=== PATIENT | male | born 1975 | race Caucasian/White ===

== ENCOUNTER 2016-04-29 20:32 | Emergency (ER) | payer MEDICAID ==
[2016-04-29] MEDS ORDERED: Sodium Chloride 0.9% 1,000 ML IV SCH (22:15)
[2016-04-29] MEDS ORDERED: Insulin Lispro Protamine/Lispro 75-25 100 Units/ML 10 ML Vial SUBCUT SCH ×3 (22:20→23:30)
[2016-04-29] MEDS ORDERED: Potassium Chloride 10% 20 MEQ/15 ML Soln 15 ML UD Cup PO SCH ×2 (22:30)
[2016-04-29] MEDS ORDERED: Insuln Aspart Prot/Insulin Aspart 100 Units/ML 3 ML FlexPen SUBCUT SCH (22:30)
[2016-04-29] MEDS ORDERED: Insuln Aspart Prot/Insulin Aspart 100 Units/ML 3 ML FlexPen SUBCUT ONE (23:30)
[2016-04-30 04:44] VITALS: BP 138/72
[2016-04-30] MEDS ORDERED: Insulin Lispro Protamine/Lispro 75-25 100 Units/ML 10 ML Vial SUBCUT SCH (07:30)
--- NOTE | 2016-04-30 11:47 | CR ---
INDICATION: Shaky, slurred speech, secondary to high blood glucose. CHEST: PA and lateral views of the chest 04/29/2016 were compared with 2015 and 08/26/2015, revealing the heart to be slightly enlarged. The aorta is calcified in the arch area. No focal chamber enlargement was seen. A minimal dextroconcave scoliosis of the lower thoracic spine is again noted. A definite active infiltrate or effusion was not identified with heavy markings at the lung bases, especially on the right again noted. Somewhat nodular appearance is unchanged there. Additionally, a faint nodule in the left mid lung field is unchanged, compared with 08/24/2015. IMPRESSION: 1. Stable appearance of the chest. No definite acute process. 2. ASHD with cardiomegaly. 3. Mild scoliosis. 4. Nodularity in the lungs likely on the basis of post granulomatous change. 5. Prominent AP diameter, slightly flattened diaphragm leaves, raising question of COPD - correlate clinically. MTDD
--- NOTE | 2016-05-01 10:50 | ER ---
DATE SEEN: 04/29/2016 TIME SEEN: The patient was seen at 2038 hours. CHIEF COMPLAINT: "I feel funny and shaky." HISTORY OF PRESENT ILLNESS: This 41-year-old, who has known diabetes, has not taken care of his diabetes for several years, who now has appointment with a specialist in [place] at 1500 hours, 04/30/2016. The patient was seen at 2038 hours. He notes his speech is slurred. He has been "walking funny". He was diagnosed with diabetes 2 years ago. He has not taken his medicine for 2 years. He noted he had difficulty standing today and is more sleepy than usual and more tired than usual. He is going to school at [email or web address] and works at [employer] in [place], and he has a 17-hour day. MEDICATIONS: None. He has a history of asthma, and he uses albuterol p.r.n. at home as nebulization. ALLERGIES: Linezolid. The patient has not had his recent flu shot. Status post thoracotomy for a collapsed lung in 2011, left posterior lung incision. REVIEW OF SYSTEMS: Negative, except as noted above in HPI. The patient has no recent history of fever. PHYSICAL EXAMINATION: VITAL SIGNS: Blood pressure 135/78, heart rate 78, respirations 16, oxygen saturation 100%. Weight 90.718 kg, 1.75 meters height. BMI 29.5 kg/m2. GENERAL: Obese man, who has a markedly protuberant abdomen. He has slightly slurred speech. HEENT: PERRLA intact. Pupils are sluggish, but they are slightly dilated at 3 mm. Conjugate gaze noted. Pharynx: Moderate dryness of the pharynx. TMs negative. NECK: Supple. No bruits in neck. No thyromegaly. LUNGS: Clear to auscultation without rales, rhonchi, or wheezes. He has a posterior infrascapular thoracotomy scar, that is healed. Nontender. No absence of the ribs. ABDOMEN: Markedly protuberant. No masses palpable - I am unable to palpate anything because he has such a protuberant abdomen. EXTREMITIES: Without edema. NEURO: Hypoactive upper and lower extremities. Cranial nerves 2 through 12 intact. Oriented x3. Gait appropriate and slight slurred speech. No dysdiadochokinesis. No dysmetria. Hand arterial embalmer is good in upper and lower extremities. No motor or pronator drift. DIAGNOSTIC DATA: Chest x-ray without abnormality. EKG is normal. LABORATORY FINDINGS: Markedly elevated glucose, initially was 817. Sodium 125 (pseudohyponatremia secondary to hyperglycemia), potassium 3.9, chloride 93, CO2 of 24, BUN 20, creatinine 1.0, GFR greater than 60, BUN and creatinine ratio 20, hemoglobin A1c 12.8, total bilirubin 1.4, troponin less than 0.01. AST 24, ALT 21, alkaline phosphate 89, albumin normal at 3.8, protein normal at 6.5. Urinalysis shows rare bacteria, otherwise negative, 1.010 specific gravity. The latter was obtained after he had been flushed with 1000 mL of normal saline. The patient has hyperglycemia, was started on aspartate insulin 10 units subcu, and his subsequent glucose an hour later had gone down from 817 to 624. He was given a second dose of aspartate insulin and given 12 units of NovoLog, and his glucose then went down to 263. He never had ketonuria. DIAGNOSES: 1. Hyperosmotic hyperglycemia secondary to type 2 diabetes. 2. Massive obesity. 3. Confusion, slight slurred speech, and mild ataxia secondary to hyperglycemia. 4. Pseudohyponatremia secondary to hyperglycemia. 5. No evidence for myocardial ischemia. EKG is normal. 6. Dehydration. 7. Poor diabetic compliance. It has been 2 years since he has seen a doctor and treated his diabetes. 8. 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 The patient was flushed with a liter of fluid. He feels much better. His ataxia has relented. His alertness has improved. His speech is improved. No further insulin was given. He had 40 mEq of potassium chloride given because of potential low starting potassium of 3.9, and the presumption with insulin it would drop. /[id number] ASHLYN/JEFFERY RODRIGEZ
== END 2016-04-30 01:19 | disposition home or self-care (01) ==
LOC: FB.ED 20:32
DX: E11.00 Type 2 diabetes mellitus with hyperosmolarity without nonketotic hyperglycemic-hyperosmolar coma (NKHHC) (principal); J45.909 Unspecified asthma, uncomplicated; E66.9 Obesity, unspecified; E87.1 Hypo-osmolality and hyponatremia; E86.0 Dehydration; Z91.14 Patient's other noncompliance with medication regimen; Z88.8 Allergy status to other drugs, medicaments and biological substances
CPT/HCPCS: 36415; 71020; 80053; 81001; 82947; 83036; 84484; 93005; 96360; 96372; 99285; A9270; J7040

== ENCOUNTER 2016-05-22 21:06 | Observation (INO) | payer MEDICAID ==
[2016-05-22] MEDS ORDERED: Albuterol/Ipratropium 3.0-0.5 MG/3 ML Neb Soln NEB ONE (21:49)
--- NOTE | 2016-05-22 21:52 | EDM.PDOC ---
ED HISTORY OF PRESENT ILLNESS - General Chief Complaint: Respiratory Problem Stated Complaint: TROUBLE BREATHING Time Seen by Provider: 05/22/16 21:40 Source: Reports: Patient History Limitations: Reports: No limitations - History of Present Illness INITIAL COMMENTS - FREE TEXT/NARRATIVE: Helen comes in with a 1 week hx of productive cough of yellow tinged sputa, wheezing, and malaise. He was seen by PCP yesterday and prescribed a Z Jcarlos. He has been med compliant, although did not perform an Albuterol Neb this pm. Sxs seem worse. There is no chest pain, fever, chills or sweats. His spouse is also ill with a cold. Helen does not smoke. - Related Data Allergies/ADRs: Allergies Allergy/AdvReac Type Severity Reaction Status Date / Time linezolid [From Zyvox] Allergy Severe Rash Verified 05/22/16 22:32 Home Meds: Home Meds Albuterol [Proventil Neb Soln] 0.63 mg NEB Q6H 10/30/15 [History] metFORMIN HCl [Metformin HCl] 1,000 mg PO 05/22/16 [History] predniSONE 40 mg PO WITHBREAKFAST #8 tablet 05/22/16 [Rx] Past Medical History Respiratory History: Reports: Asthma, Bronchitis, recurrent, Pneumonia, recurrent, Pneumothorax Psychiatric History: Reports: Anxiety, Learning disability Endocrine/Metabolic History: Reports: Diabetes, type II - Infectious Disease History Infectious Disease History: Reports: MRSA - Past Surgical History Respiratory Surgical History: Reports: Other (see below) Other Respiratory Surgeries/Procedures: 2012 L lung collapsed Social & Family History - Family History Family Medical History: Unobtainable - Tobacco Use Smoking Status *Q: Never Smoker Second Hand Smoke Exposure: No - Caffeine Use Caffeine Use: Reports: Soda - Recreational Drug Use Recreational Drug Use: No ED ROS GENERAL - Review of Systems Review Of Systems: See Below Constitutional: Reports: malaise HEENT: Reports: No symptoms Respiratory: Reports: Shortness of Breath, Wheezing, Cough, Sputum Cardiovascular: Reports: No symptoms Endocrine: Reports: no symptoms GI/Abdominal: Reports: No symptoms : Reports: no symptoms Musculoskeletal: Reports: no symptoms Skin: Reports: no symptoms Neurological: Reports: No Symptoms Psychiatric: Reports: No symptoms Hematologic/Lymphatic: Reports: no symptoms Immunologic: Reports: no symptoms ED EXAM, GENERAL - Physical Exam Exam: See Below Exam Limited By: No limitations General Appearance: alert, WD/WN, mild distress Ears: normal external exam, normal canal Nose: normal inspection Throat/Mouth: Normal inspection, Normal lips, Normal gums, Normal oropharynx, Normal voice Head: atraumatic, normocephalic Neck: normal inspection, supple, non-tender, full range of motion Respiratory/Chest: chest non-tender, decreased breath sounds, rhonchi, wheezing , prolonged expiration Cardiovascular: normal peripheral pulses, regular rate, rhythm, no edema, no gallop, no JVD, no murmur, no rub GI/Abdominal: normal bowel sounds, soft, non tender, no organomegaly, no mass (Male) Exam: No hernia Back Exam: normal inspection Extremities: normal inspection, normal range of motion Neurological: alert, oriented, CN II-XII intact, normal cognition, normal gait, no motor/sensory deficits Psychiatric: other (mood neutral, affect mildly anxious) Skin Exam: Warm, Dry, Intact, Normal color, No rash Lymphatic: no adenopathy Course - Vital Signs Text/Narrative:: Following admission to the [facility] ED, I administered a DuoNeb and Prednisone 40 mg po. There was sx improvment with treatment. Last Recorded V/S: Last Vital Signs Temp 36.9 C 05/22/16 21:25 Pulse 110 H 05/22/16 21:25 Resp 20 05/22/16 21:25 BP 146/86 H 05/22/16 21:25 Pulse Ox 93 L 05/22/16 21:25 - Orders/Labs/Meds Orders: Active Orders 24 hr Category Date Time Status RT Aerosol Therapy [RC] ASDIRECTED Care 05/22/16 21:49 Active predniSONE Med 05/23/16 22:05 Once 40 mg PO ONETIME ONE Medication Orders Prednisone (Prednisone) 40 mg PO ONETIME ONE Stop: 05/23/16 22:06 Last Admin: 05/22/16 22:14 Dose: 40 mg Meds: Medications Generic Name Dose Route Start Last Admin Trade Name Freq PRN Reason Stop Dose Admin Prednisone 40 mg 05/23/16 22:05 05/22/16 22:14 Prednisone PO 05/23/16 22:06 40 mg ONETIME ONE Administration Discontinued Medications Generic Name Dose Route Start Last Admin Trade Name Freq PRN Reason Stop Dose Admin Albuterol/Ipratropium 3 ml 05/22/16 21:49 05/22/16 21:52 Duoneb 3.0-0.5 Mg/3 Ml NEB 05/22/16 21:50 3 ml ONETIME ONE Administration Prednisone 40 mg 05/23/16 08:00 Prednisone PO WITHBREAKFAST [facility] Prednisone Confirm 05/22/16 22:12 05/22/16 22:14 Prednisone Administered 05/22/16 22:13 Not Given Dose 40 mg .ROUTE .STK-MED ONE Departure - Departure Time of Disposition: 22:30 Disposition: Home, Self-Care 01 Condition: fair Clinical Impression: Bronchitis Asthma Qualifiers: Asthma severity: moderate persistent Asthma complication type: with acute exacerbation Qualified Code(s): J45.41 - Moderate persistent asthma with (acute ) exacerbation Forms: ED Department Discharge - Problem List & Annotations (1) Bronchitis SNOMED Code(s): 31553595 Code(s): J40 - BRONCHITIS, NOT SPECIFIED ACUTE OR CHRONIC Status: Acute Current Visit: Yes Annotation/Comment:: Finish out Z Jcarlos per PCP. (2) Asthma SNOMED Code(s): 629313538 Code(s): J45.909 - UNSPECIFIED ASTHMA, UNCOMPLICATED Status: Acute Current Visit: Yes Annotation/Comment:: Continue Prednisone 40 mg qd for another 4 days, and Albuterol Nebs q 2-4 hrs prn for sx relief. Follow up with PCP. Qualifiers: Asthma severity: moderate persistent Asthma complication type: with acute exacerbation Qualified Code(s): J45.41 - Moderate persistent asthma with ( acute) exacerbation - Problem List Review Problem List Initiated/Reviewed/Updated: Yes - My Orders Last 24 Hours: My Active Orders 05/22/16 21:49 RT Aerosol Therapy [RC] ASDIRECTED 05/23/16 22:05 predniSONE 40 mg PO ONETIME ONE - Assessment/Plan Last 24 Hours: My Active Orders 05/22/16 21:49 RT Aerosol Therapy [RC] ASDIRECTED 05/23/16 22:05 predniSONE 40 mg PO ONETIME ONE Plan: Finish out meds and follow up with PCP. Consider steroid MDI for mod persistent asthma.
[2016-05-22] MEDS ORDERED: predniSONE 20 MG Tab ONE (22:12)
[2016-05-23] MEDS ORDERED: Sodium Chloride 0.9% 10 ML Syringe FLUSH PRN (01:24)
[2016-05-23] MEDS ORDERED: Albuterol/Ipratropium 3.0-0.5 MG/3 ML Neb Soln INH PRN (01:24)
[2016-05-23] MEDS ORDERED: Insulin Regular, Human 100 Units/ML 3 ML Vial IV STA ×5 (01:48→06:26)
[2016-05-23] MEDS: Sodium Chloride 0.9% 1,000 ML IV SCH ×2 (02:00→05:37)
[2016-05-23] MEDS: ALBUTEROL 0.63 MG NEB SCH ×2 (02:19→14:26)
[2016-05-23] MEDS ORDERED: Flu Vaccine 2016-17(36Mos+)/PF 60 MCG/0.5 ML Syringe IM ONE (03:25)
[2016-05-23] MEDS ORDERED: predniSONE 20 MG Tab PO SCH ×2 (08:00)
[2016-05-23] MEDS ORDERED: Insulin Detemir 100 Units/ML 3 ML Pen SUBCUT SCH (09:00)
[2016-05-23] MEDS ORDERED: metFORMIN 500 MG Tab.ER PO SCH (09:00)
[2016-05-23] MEDS ORDERED: Azithromycin 250 MG Tab PO SCH (09:00)
[2016-05-23] MEDS ORDERED: glipiZIDE 10 MG Tab.ER PO SCH (09:00)
--- NOTE | 2016-05-23 09:07 | PCM.HP ---
H&P History of Present Illness - General Date of Service: 05/23/16 Admit Problem/Dx: Admission Diagnosis/Problem Admission Diagnosis/Problem Diabetes mellitus type 2 Source of Information: Patient - History of Present Illness Initial Comments - Free Text/Narative: This is a 41-year-old male patient does have three-week history of a cough productive sputum. He was seen in the ER and had a chest x-ray. He states 3 days ago he was seen in the clinic in on a Z-Jcarlos. He also was admitted because of blood sugar was over 600. He states he's been placed on insulin lately but he doesn't have time to take it. 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 He states he is has excessive thirst and urination. No excess hunger. He has a productive cough with green sputum. He denies shortness of breath. History of asthma. He spelled some chills but no fevers. He vomited one time a couple days of diarrhea. - Related Data Allergies/Adverse Reactions: Allergies Allergy/AdvReac Type Severity Reaction Status Date / Time linezolid [From Zyvox] Allergy Severe Rash Verified 05/23/16 00:12 Home Medications: Home Meds Albuterol [Proventil Neb Soln] 0.63 mg NEB Q6H 10/30/15 [History] metFORMIN HCl [Metformin HCl] 1,000 mg PO DAILY 05/22/16 [History] Azithromycin [Azithromycin] 250 mg PO DAILY 05/23/16 [History] Past Medical History Respiratory History: Reports: Asthma, Bronchitis, recurrent, Pneumonia, recurrent, Pneumothorax Neurological History: Reports: Seizure Other Neuro History: last one at age 2 Psychiatric History: Reports: Anxiety, Learning disability Endocrine/Metabolic History: Reports: Diabetes, type II Other Endocrine/Metabolic History: currently not taking his metformin because it makes him drowsy - Infectious Disease History Infectious Disease History: Reports: MRSA - Past Surgical History Respiratory Surgical History: Reports: Other (see below) Other Respiratory Surgeries/Procedures: 2012 L lung collapsed Social & Family History - Family History Family Medical History: Noncontributory - Tobacco Use Smoking Status *Q: Never Smoker Second Hand Smoke Exposure: No - Caffeine Use Caffeine Use: Reports: None - Recreational Drug Use Recreational Drug Use: No H&P Review of Systems - Review of Systems: Review Of Systems: See Below General: Reports: chills HEENT: Reports: no symptoms Pulmonary: Reports: Wheezing, Cough, Sputum. Denies: Shortness of Breath Cardiovascular: Reports: no symptoms Gastrointestinal: Reports: Vomiting. Denies: Black stool, Constipation, Diarrhea, Decreased appetite Genitourinary: Reports: no symptoms Musculoskeletal: Reports: no symptoms Skin: Reports: no symptoms Psychiatric: Reports: no symptoms Neurological: Reports: No Symptoms Hematologic/Lymphatic: Reports: no symptoms Immunologic: Reports: no symptoms Exam - Exam Exam: See Below - Vital Signs Vital Signs: Last Vital Signs Temp 97.7 F 05/23/16 07:56 Pulse 84 05/23/16 02:00 Resp 18 05/23/16 07:56 BP 129/74 05/23/16 07:56 Pulse Ox 97 05/23/16 07:56 Weight: 202 lb - Exam General: alert, oriented, cooperative HEENT: PERRLA, Hearing intact, Mucosa moist & pink, Posterior pharynx clear, Pupils equal, Pupils reactive, TMs clear Neck: supple, trachea midline Lungs: Decreased breath sounds (Left base), Wheezing Cardiovascular: regular rate, regular rhythm, normal S1, normal S2. No: systolic murmur, diastolic murmur Abdomen: normal bowel sounds, soft. No: organomegaly, guarding, rigidity, rebound, tenderness Back Exam: normal inspection, full range of motion, NT Extremities: normal inspection. No: edema Skin: warm, dry, intact Neuro Extensive - Mental Status: alert, oriented x3, normal mood/affect, normal cognition, memory intact Neuro Extensive - Motor, Sensory, Reflexes: normal gait Psychiatric: alert, normal affect, normal mood - Patient Data Lab Results last 24 hrs: Laboratory Results - last 24 hr 05/23/16 05/23/16 05/23/16 Range/Units 01:24 02:15 03:07 ABG pH 7.46 H (7.35-7.45) ABG pCO2 36 (35-45) mmHg ABG pO2 65 L (83-108) mmHg ABG HCO3 25 (22-26) mmol/L ABG O2 Saturation 94 L (96-97) % ABG Base Excess 2.5 H (-2-2) Daniele Test Performed O2 Delivery Device Room air Oxygen Flow Rate 0 L Sodium (135-145) mmol/L Potassium (3.5-5.3) mmol/L Chloride (100-110) mmol/L Carbon Dioxide (23-29) mmol/L BUN (5-20) mg/dL Creatinine (0.6-1.3) mg/dL Est Cr Clr Drug Dosing mL/min Estimated GFR (MDRD) (>60) BUN/Creatinine Ratio (9-20) Glucose (80-116) mg/dL POC Glucose 352 H (80-116) mg/dL Hemoglobin A1c 12.9 H (4.0-6.0) % Calcium (8.6-10.2) mg/dL 05/23/16 05/23/16 05/23/16 Range/Units 04:16 05:13 06:20 ABG pH (7.35-7.45) ABG pCO2 (35-45) mmHg ABG pO2 (83-108) mmHg ABG HCO3 (22-26) mmol/L ABG O2 Saturation (96-97) % ABG Base Excess (-2-2) Daniele Test O2 Delivery Device Oxygen Flow Rate L Sodium 135 (135-145) mmol/L Potassium 3.7 (3.5-5.3) mmol/L Chloride 98 L D (100-110) mmol/L Carbon Dioxide 26 (23-29) mmol/L BUN 17 (5-20) mg/dL Creatinine 0.9 (0.6-1.3) mg/dL Est Cr Clr Drug Dosing 108.01 mL/min Estimated GFR (MDRD) > 60 (>60) BUN/Creatinine Ratio 18.9 (9-20) Glucose 265 H D (80-116) mg/dL POC Glucose 355 H 347 H (80-116) mg/dL Hemoglobin A1c (4.0-6.0) % Calcium 8.7 (8.6-10.2) mg/dL 05/23/16 05/23/16 Range/Units 06:24 07:51 ABG pH (7.35-7.45) ABG pCO2 (35-45) mmHg ABG pO2 (83-108) mmHg ABG HCO3 (22-26) mmol/L ABG O2 Saturation (96-97) % ABG Base Excess (-2-2) Daniele Test O2 Delivery Device Oxygen Flow Rate L Sodium (135-145) mmol/L Potassium (3.5-5.3) mmol/L Chloride (100-110) mmol/L Carbon Dioxide (23-29) mmol/L BUN (5-20) mg/dL Creatinine (0.6-1.3) mg/dL Est Cr Clr Drug Dosing mL/min Estimated GFR (MDRD) (>60) BUN/Creatinine Ratio (9-20) Glucose (80-116) mg/dL POC Glucose 230 H D 188 H (80-116) mg/dL Hemoglobin A1c (4.0-6.0) % Calcium (8.6-10.2) mg/dL Result Diagrams: 05/23/16 06:20 *Q Meaningful Use (ADM) - VTE *Q VTE Criteria *Q: - Stroke *Q Stroke Criteria *Q: - AMI *Q AMI Criteria *Q: - Problem List (1) Bronchitis SNOMED Code(s): 53484937 ICD Code: J40 - BRONCHITIS, NOT SPECIFIED ACUTE OR CHRONIC Status: Acute Current Visit: Yes Problem Details: Finish out Z Jcarlos per PCP. (2) Diabetes mellitus type 2, uncontrolled SNOMED Code(s): 76582408, 228362921 ICD Code: E11.65 - TYPE 2 DIABETES MELLITUS WITH HYPERGLYCEMIA Status: Acute Current Visit: Yes (3) Asthma SNOMED Code(s): 821119450 ICD Code: J45.909 - UNSPECIFIED ASTHMA, UNCOMPLICATED Status: Acute Current Visit: Yes Problem Details: Continue Prednisone 40 mg qd for another 4 days, and Albuterol Nebs q 2-4 hrs prn for sx relief. Follow up with PCP. Qualifiers: Asthma severity: moderate persistent Asthma complication type: with acute exacerbation Qualified Code(s): J45.41 - Moderate persistent asthma with ( acute) exacerbation (4) Hyponatremia SNOMED Code(s): 42559094 ICD Code: E87.1 - HYPO-OSMOLALITY AND HYPONATREMIA Status: Acute Current Visit: Yes Problem List Initiated/Reviewed/Updated: Yes Orders Last 24hrs: Active Orders 24 hr Category Date Time Status Patient Status [ADT] Routine ADT 05/23/16 01:24 Active Cardiac Monitoring [RC] CONTINUOUS Care 05/23/16 01:26 Active Oxygen Therapy [RC] PRN Care 05/23/16 01:24 Active Up ad Miladis [RC] ASDIRECTED Care 05/23/16 01:24 Active Vital Signs [RC] Q4H Care 05/23/16 01:24 Active Consistent Carbohydrate Diet [DIET] Diet 05/23/16 Breakfast Active Chest 2V [CR] Routine Exams 05/23/16 09:00 Ordered Albuterol/Ipratropium [DuoNeb 3.0-0.5 MG/3 ML] Med 05/23/16 01:24 Active 3 ml INH Q4H PRN Azithromycin [Zithromax] Med 05/23/16 09:00 Active 250 mg PO DAILY Insulin Detemir [Levemir] Med 05/23/16 09:00 Ordered 10 unit SUBCUT DAILY Insulin Regular, Human [HumuLIN R] 100 unit Med 05/23/16 01:45 Active Sodium Chloride 0.9% [Normal Saline] 99 ml SUBCUT TITRATE Sodium Chloride 0.9% [Normal Saline] 1,000 ml Med 05/23/16 01:45 Active IV ASDIRECTED Sodium Chloride 0.9% [Saline Flush] Med 05/23/16 01:24 Active 10 ml FLUSH ASDIRECTED PRN glipiZIDE [Glucotrol] Med 05/23/16 09:00 Ordered 10 mg PO DAILY metFORMIN [Glucophage XR] Med 05/23/16 18:00 Ordered 500 mg PO BIDMEALS predniSONE Med 05/23/16 08:00 Active 40 mg PO WITHBREAKFAST Saline Lock Insert [OM.PC] Routine Oth 05/23/16 01:24 Ordered Resuscitation Status Routine Resus Stat 05/23/16 01:24 Ordered Medication Orders Albuterol/Ipratropium (Duoneb 3.0-0.5 Mg/3 Ml) 3 ml INH Q4H PRN PRN Reason: Shortness Of Breath/wheezing Last Admin: 05/23/16 02:18 Dose: 3 ml Azithromycin (Zithromax) 250 mg PO DAILY JOSE Glipizide (Glucotrol) 10 mg PO DAILY JOSE Insulin Human Regular 100 unit (/ Sodium Chloride) 100 mls @ 0.5 mls/hr SUBCUT TITRATE JOSE; 0.5 UNITS/HR PRN Reason: Protocol Last Titration: 05/23/16 07:55 Dose: 8 units/hr, 8 mls/hr Titration: 05/23/16 06:23 Dose: 7.5 units/hr, 7.5 mls/hr Titration: 05/23/16 05:14 Dose: 6.5 units/hr, 6.5 mls/hr Titration: 05/23/16 04:17 Dose: 4.5 units/hr, 4.5 mls/hr Titration: 05/23/16 03:00 Dose: 2.5 units/hr, 2.5 mls/hr Admin: 05/23/16 02:00 Dose: 0.5 units/hr, 0.5 mls/hr Sodium Chloride (Normal Saline) 1,000 mls @ 250 mls/hr IV ASDIRECTED COUNTS INCLUDE 234 BEDS AT THE [facility] Last Admin: 05/23/16 05:37 Dose: 250 mls/hr Infusion: 05/23/16 05:37 Dose: 250 mls/hr Admin: 05/23/16 02:00 Dose: 250 mls/hr Insulin Detemir (Levemir) 10 unit SUBCUT DAILY COUNTS INCLUDE 234 BEDS AT THE [facility] Metformin HCl (Glucophage Xr) 500 mg PO BIDMEALS COUNTS INCLUDE 234 BEDS AT THE [facility] Non-Formulary Medication (Albuterol [Proventil Neb Soln]) 0.63 mg NEB Q6H COUNTS INCLUDE 234 BEDS AT THE [facility] Last Admin: 05/23/16 02:19 Dose: Prednisone (Prednisone) 40 mg PO WITHBREAKFAST COUNTS INCLUDE 234 BEDS AT THE [facility] Sodium Chloride (Saline Flush) 10 ml FLUSH ASDIRECTED PRN PRN Reason: Keep Vein Open Last Admin: 05/23/16 02:13 Dose: 10 ml Assessment/Plan Comment:: 1. Admitted for blood sugar control. 2. I looked up what medicines he is on in the clinic is not taking. He'll restart the study. 2. Diabetic diet. 4. Chest x-ray to rule out pneumonia. 5. Up ad miladis. 6. Albuterol nebs when necessary. 7. Continue Zithromax.
[2016-05-23] MEDS ORDERED: Albuterol 0.083% 2.5 MG/3 ML Neb Soln INH SCH (11:00)
--- NOTE | 2016-05-23 11:19 | CR ---
INDICATION: Cough. CHEST: PA and lateral views of the chest 05/23/2016 were compared with 2016 and 02/16/2016, revealing suggestion of patchy infiltration in the right mid lung field, right lung base and lower lung field also on the left, as well as possibly at the left lung base. Findings may represent areas of patchy bronchopneumonia. No gross consolidating pneumonia or effusion was seen. Diaphragm leaves are again noted to be somewhat flattened with prominent AP diameter, raising question of obstructive airway disease - possible COPD - correlate clinically. The heart appeared somewhat prominent in size, but not grossly enlarged. There may be some minimal calcification in the arch of the aorta. Overlying EKG leads are noted. Mild dextroconcave scoliosis of the lower thoracic spine is noted. IMPRESSION: 1. Findings suggest the possibility of patchy bronchopneumonia bilaterally. This could be on the basis of aspiration, but should be correlated clinically. 2. ASD aorta, minimal. 3. Minimal scoliosis. 4. Possible COPD. MTDD
[2016-05-23 12:10] VITALS: BP 137/69
--- NOTE | 2016-05-23 12:15 | PCM.DCSUM1 ---
Discharge Summary - Hospital Course Free Text/Narrative:: Hospital course-patient was admitted for IV insulin and steroids. I saw him in the morning and taken off his insulin and place him back on Glucophage and Glucotrol 10 mg XL once a day. I stopped his steroids. He got a chest x-ray that showed bibasilar pneumonia. He was already on Zithromax and which is helping so I added doxycycline 100 mg twice a day. Discharge to home follow up with Aysha Banegas. Brief History: This is a 41-year-old male patient does have three-week history of a cough productive sputum. He was seen in the ER and had a chest x-ray. He states 3 days ago he was seen in the clinic in on a [facility]. He also was admitted because of blood sugar was over 600. He states he's been placed on insulin lately but he doesn't have time to take it. 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 He states he is has excessive thirst and urination. No excess hunger. He has a productive cough with green sputum. He denies shortness of breath. History of asthma. He spelled some chills but no fevers. He vomited one time a couple days of diarrhea. - Discharge Data Discharge Date: 05/23/16 Discharge Disposition: Home, Self-Care 01 Condition: Good - Discharge Diagnosis/Problem(s) (1) Diabetes mellitus type 2, uncontrolled SNOMED Code(s): 41874369, 713484929 ICD Code: E11.65 - TYPE 2 DIABETES MELLITUS WITH HYPERGLYCEMIA Status: Acute Current Visit: Yes (2) Asthma SNOMED Code(s): 195841171 ICD Code: J45.909 - UNSPECIFIED ASTHMA, UNCOMPLICATED Status: Acute Current Visit: Yes Problem Details: Continue Prednisone 40 mg qd for another 4 days, and Albuterol Nebs q 2-4 hrs prn for sx relief. Follow up with PCP. Qualifiers: Asthma severity: moderate persistent Asthma complication type: with acute exacerbation Qualified Code(s): J45.41 - Moderate persistent asthma with ( acute) exacerbation (3) Hyponatremia SNOMED Code(s): 59570380 ICD Code: E87.1 - HYPO-OSMOLALITY AND HYPONATREMIA Status: Acute Current Visit: Yes (4) Pneumonia SNOMED Code(s): 375777473 ICD Code: J18.9 - PNEUMONIA, UNSPECIFIED ORGANISM Status: Acute Current Visit: Yes Qualifiers: Pneumonia type: due to unspecified organism Laterality: bilateral - Patient Instructions Diet: Diabetic Diet Activity: As Tolerated Driving: May Drive Today Showering/Bathing: May Shower Other/Special Instructions: 1. Recheck with Aysha Banegas in 3-5 days - Discharge Plan Prescriptions/Med Rec: Doxycycline [Vibra-Tabs] 100 mg PO Q12HR #20 tab glipiZIDE [Glucotrol XL] 10 mg PO DAILY #30 tab.er Home Medications: Home Meds Albuterol [Proventil Neb Soln] 0.63 mg NEB Q6H 10/30/15 [History] metFORMIN HCl [Metformin HCl] 1,000 mg PO DAILY 05/22/16 [History] Azithromycin 250 mg PO DAILY 05/23/16 [History] Doxycycline [Vibra-Tabs] 100 mg PO Q12HR #20 tab 05/23/16 [Rx] glipiZIDE [Glucotrol XL] 10 mg PO DAILY #30 tab.er 05/23/16 [Rx] Forms: ED Department Discharge Referrals: PCP,Unknown [Primary Care Provider] - - Discharge Summary/Plan Comment DC Time >30 min.: No - Patient Data Vitals - Most Recent: Last Vital Signs Temp 97.2 F 05/23/16 12:00 Pulse 90 05/23/16 12:00 Resp 18 05/23/16 12:00 BP 137/69 05/23/16 12:00 Pulse Ox 96 05/23/16 12:00 Weight - Most Recent: 202 lb I&O - Last 24 hours: Intake & Output 05/22/16 05/23/16 05/23/16 22:59 06:59 14:59 Intake Total 1816 125 Output Total 1400 725 Balance 416 -600 Lab Results - Last 24 hrs: Laboratory Results - last 24 hr 05/23/16 05/23/16 05/23/16 Range/Units 01:24 02:15 03:07 ABG pH 7.46 H (7.35-7.45) ABG pCO2 36 (35-45) mmHg ABG pO2 65 L (83-108) mmHg ABG HCO3 25 (22-26) mmol/L ABG O2 Saturation 94 L (96-97) % ABG Base Excess 2.5 H (-2-2) Daniele Test Performed O2 Delivery Device Room air Oxygen Flow Rate 0 L Sodium (135-145) mmol/L Potassium (3.5-5.3) mmol/L Chloride (100-110) mmol/L Carbon Dioxide (23-29) mmol/L BUN (5-20) mg/dL Creatinine (0.6-1.3) mg/dL Est Cr Clr Drug Dosing mL/min Estimated GFR (MDRD) (>60) BUN/Creatinine Ratio (9-20) Glucose (80-116) mg/dL POC Glucose 352 H (80-116) mg/dL Hemoglobin A1c 12.9 H (4.0-6.0) % Calcium (8.6-10.2) mg/dL 05/23/16 05/23/16 05/23/16 Range/Units 04:16 05:13 06:20 ABG pH (7.35-7.45) ABG pCO2 (35-45) mmHg ABG pO2 (83-108) mmHg ABG HCO3 (22-26) mmol/L ABG O2 Saturation (96-97) % ABG Base Excess (-2-2) Daniele Test O2 Delivery Device Oxygen Flow Rate L Sodium 135 (135-145) mmol/L Potassium 3.7 (3.5-5.3) mmol/L Chloride 98 L D (100-110) mmol/L Carbon Dioxide 26 (23-29) mmol/L BUN 17 (5-20) mg/dL Creatinine 0.9 (0.6-1.3) mg/dL Est Cr Clr Drug Dosing 108.01 mL/min Estimated GFR (MDRD) > 60 (>60) BUN/Creatinine Ratio 18.9 (9-20) Glucose 265 H D (80-116) mg/dL POC Glucose 355 H 347 H (80-116) mg/dL Hemoglobin A1c (4.0-6.0) % Calcium 8.7 (8.6-10.2) mg/dL 05/23/16 05/23/16 05/23/16 Range/Units 06:24 07:51 09:02 ABG pH (7.35-7.45) ABG pCO2 (35-45) mmHg ABG pO2 (83-108) mmHg ABG HCO3 (22-26) mmol/L ABG O2 Saturation (96-97) % ABG Base Excess (-2-2) Daniele Test O2 Delivery Device Oxygen Flow Rate L Sodium (135-145) mmol/L Potassium (3.5-5.3) mmol/L Chloride (100-110) mmol/L Carbon Dioxide (23-29) mmol/L BUN (5-20) mg/dL Creatinine (0.6-1.3) mg/dL Est Cr Clr Drug Dosing mL/min Estimated GFR (MDRD) (>60) BUN/Creatinine Ratio (9-20) Glucose (80-116) mg/dL POC Glucose 230 H D 188 H 148 H (80-116) mg/dL Hemoglobin A1c (4.0-6.0) % Calcium (8.6-10.2) mg/dL Med Orders - Current: Current Medications Albuterol (Proventil Neb Soln) 2.5 mg INH QIDRT [facility] Last Admin: 05/23/16 10:23 Dose: 2.5 mg Albuterol/Ipratropium (Duoneb 3.0-0.5 Mg/3 Ml) 3 ml INH Q4H PRN PRN Reason: Shortness Of Breath/wheezing Last Admin: 05/23/16 02:18 Dose: 3 ml Azithromycin (Zithromax) 250 mg PO DAILY [facility] Last Admin: 05/23/16 09:06 Dose: 250 mg Glipizide (Glucotrol Xl) 10 mg PO DAILY [facility] Last Admin: 05/23/16 10:42 Dose: 10 mg Sodium Chloride (Normal Saline) 1,000 mls @ 250 mls/hr IV ASDIRECTED [facility] Last Admin: 05/23/16 05:37 Dose: 250 mls/hr Insulin Detemir (Levemir) 10 unit SUBCUT DAILY [facility] Last Admin: 05/23/16 09:22 Dose: 10 units Metformin HCl (Glucophage Xr) 500 mg PO BIDMEALS [facility] Last Admin: 05/23/16 10:26 Dose: 500 mg Prednisone (Prednisone) 40 mg PO WITHBREAKFAST [facility] Last Admin: 05/23/16 09:05 Dose: 40 mg Sodium Chloride (Saline Flush) 10 ml FLUSH ASDIRECTED PRN PRN Reason: Keep Vein Open Last Admin: 05/23/16 02:13 Dose: 10 ml Discontinued Medications Albuterol/Ipratropium (Duoneb 3.0-0.5 Mg/3 Ml) 3 ml NEB ONETIME ONE Stop: 05/22/16 21:50 Last Admin: 05/22/16 21:52 Dose: 3 ml Insulin Human Regular 100 unit (/ Sodium Chloride) 100 mls @ 0.5 mls/hr SUBCUT TITRATE JOSE; 0.5 UNITS/HR PRN Reason: Protocol Last Titration: 05/23/16 09:12 Dose: 0 units/hr, 0 mls/hr Influenza Virus Vaccine (Fluzone/Fluarix Vaccine) 60 mcg IM .ONCE ONE Stop: 05/23/16 03:26 Insulin Human Regular (Humulin R) 5 unit IV NOW STA PRN Reason: Protocol Stop: 05/23/16 01:49 Last Admin: 05/23/16 02:00 Dose: 5 units Insulin Human Regular (Humulin R) 3 unit IV NOW STA PRN Reason: Protocol Stop: 05/23/16 03:11 Last Admin: 05/23/16 03:43 Dose: 3 units Insulin Human Regular (Humulin R) 0 unit IV NOW STA PRN Reason: Protocol Stop: 05/23/16 04:21 Last Admin: 05/23/16 04:40 Dose: 3 units Insulin Human Regular (Humulin R) 0 unit IV NOW STA PRN Reason: Protocol Stop: 05/23/16 05:17 Last Admin: 05/23/16 05:34 Dose: 3 units Insulin Human Regular (Humulin R) 1 unit IV NOW STA PRN Reason: Protocol Stop: 05/23/16 06:27 Last Admin: 05/23/16 07:14 Dose: 1 units Non-Formulary Medication (Albuterol [Proventil Neb Soln]) 0.63 mg NEB Q6H [facility] Last Admin: 05/23/16 02:19 Dose: Not Given Prednisone (Prednisone) 40 mg PO WITHBREAKFAST JOSE Prednisone (Prednisone) 40 mg PO ONETIME ONE Stop: 05/23/16 22:06 Last Admin: 05/22/16 22:14 Dose: 40 mg Prednisone (Prednisone) Confirm Administered Dose 40 mg .ROUTE .STK-MED ONE Stop: 05/22/16 22:13 Last Admin: 05/22/16 22:14 Dose: Not Given *Q Meaningful Use (DIS) - VTE *Q VTE Criteria *Q: - Stroke *Q Stroke Criteria *Q: - AMI *Q AMI Criteria *Q:
[2016-05-23] MEDS ORDERED: predniSONE 20 MG Tab PO ONE (22:05)
== END 2016-05-23 14:25 | disposition home or self-care (01) ==
LOC: FB.ED 21:06 → FB.ICU 23:51
PROVIDERS: ADMIT Family Medicine; ATTEND Family Medicine
DX: E11.65 Type 2 diabetes mellitus with hyperglycemia (principal); Z79.84 Long term (current) use of oral hypoglycemic drugs; E87.1 Hypo-osmolality and hyponatremia; J45.901 Unspecified asthma with (acute) exacerbation; J18.9 Pneumonia, unspecified organism; Z87.01 Personal history of pneumonia (recurrent); F81.9 Developmental disorder of scholastic skills, unspecified; F41.9 Anxiety disorder, unspecified; Z88.8 Allergy status to other drugs, medicaments and biological substances
CPT/HCPCS: 36415; 36600; 71020; 80048; 81001; 82803; 82962; 83036; 94640; 96360; 96361; 99283; A9270; G0008; G0378; J1815; J7030; J7040; J7050; J7620; 90686

== ENCOUNTER 2016-08-08 00:10 | Emergency (ER) | payer MEDICAID ==
[2016-08-08] MEDS ORDERED: Ondansetron 4 MG Tab.DIS PO ONE ×2 (00:54→01:57)
[2016-08-08] MEDS ORDERED: Lactated Ringers 1,000 ML IV ONE (01:02)
[2016-08-08] MEDS ORDERED: Atropine/Diphenoxylate 0.025-2.5 MG Tab PO ONE (01:03)
--- NOTE | 2016-08-08 01:37 | EDM.PDOC ---
ED HPI GENERAL MEDICAL PROBLEM - General Chief Complaint: Abdominal Pain Stated Complaint: THROWING UP Time Seen by Provider: 08/08/16 01:00 Source of Information: Reports: Patient, Family, Old Records History Limitations: Reports: No Limitations - History of Present Illness INITIAL COMMENTS - FREE TEXT/NARRATIVE: 41 yo male with vomiting and diarrhea that began in the evening of 08/07/16. No blood in stools or emesis. had similar sx's earlier. No fever. 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: Reports: Other (see below) (none) Mid abdomen Pain Score (Numeric/FACES): 6 - Related Data Allergies Allergy/AdvReac Type Severity Reaction Status Date / Time linezolid [From Zyvox] Allergy Severe Rash Verified 05/23/16 00:12 Home Meds: Home Meds Albuterol [Proventil Neb Soln] 0.63 mg NEB Q6H 10/30/15 [History] Azithromycin 250 mg PO DAILY 05/23/16 [History] Doxycycline [Vibra-Tabs] 100 mg PO Q12HR #20 tab 05/23/16 [Rx] glipiZIDE [Glucotrol XL] 10 mg PO DAILY #30 tab.er 05/23/16 [Rx] metFORMIN [Glucophage XR] 500 mg PO BIDMEALS #60 tab.er 05/23/16 [Rx] Past Medical History Respiratory History: Reports: Asthma, Bronchitis, Recurrent, Pneumonia, Recurrent, Pneumothorax Musculoskeletal History: Reports: Arthritis, Other (See Below) Other Musculoskeletal History: arthritis L foot Neurological History: Reports: Seizure Other Neuro History: last one at age 2 Psychiatric History: Reports: Anxiety, Learning Disability Endocrine/Metabolic History: Reports: Diabetes, Type II Other Endocrine/Metabolic History: currently not taking his metformin because it makes him drowsy - Infectious Disease History Infectious Disease History: Reports: Chicken Pox, MRSA, Other (See Below) Other Infectious Disease History: MRSA from lung infection - Past Surgical History Respiratory Surgical History: Reports: Other (See Below) Other Respiratory Surgeries/Procedures: chest tube for collapsed lung 2012 after pneumonia. Social & Family History - Family History Family Medical History: Noncontributory - Tobacco Use Smoking Status *Q: Never Smoker Second Hand Smoke Exposure: No - Caffeine Use Caffeine Use: Reports: Soda - Recreational Drug Use Recreational Drug Use: No ED ROS GENERAL - Review of Systems Review Of Systems: See Below Constitutional: Reports: Decreased Appetite HEENT: Reports: No Symptoms Respiratory: Reports: No Symptoms Cardiovascular: Reports: No Symptoms GI/Abdominal: Reports: Anorexia, Diarrhea, Decreased Appetite, Nausea, Vomiting. Denies: Black Stool, Bloody Stool, Constipation, Distension, Flatus, Hematemesis, Hematochezia, Melena, Stool Incontinence : Reports: No Symptoms Musculoskeletal: Reports: No Symptoms Skin: Reports: No Symptoms Neurological: Reports: No Symptoms Psychiatric: Reports: No Symptoms ED EXAM, GI/ABD - Physical Exam Exam: See Below Exam Limited By: No Limitations General Appearance: Alert, WD/WN, No Apparent Distress Eyes: Bilateral: Normal Appearance, EOMI Ears: Normal External Exam, Normal Canal, Hearing Grossly Normal, Other (R TM normal. L TM obscured by cerumen.) Nose: Normal Inspection, Normal Mucosa, No Blood Throat/Mouth: Normal Inspection, Normal Lips, Normal Oropharynx, Normal Voice, No Airway Compromise Head: Atraumatic, Normocephalic Neck: Normal Inspection, Supple, Non-Tender, Full Range of Motion Respiratory/Chest: No Respiratory Distress, Lungs Clear, Normal Breath Sounds, No Accessory Muscle Use Cardiovascular: Regular Rate, Rhythm, No Edema GI/Abdominal: Normal Bowel Sounds, Soft, Non-Tender, No Distention Back Exam: Normal Inspection Extremities: Normal Inspection, Normal Range of Motion, Non-Tender, No Pedal Edema Neurological: Alert, Oriented, CN II-XII Intact, No Motor/Sensory Deficits, Other (mentally a little slow.) Psychiatric: Normal Affect, Normal Mood Skin Exam: Warm, Dry, Intact, Normal Color, No Rash Lymphatic: No Adenopathy Course - Vital Signs Text/Narrative:: Orthostats + LR 1000 ml IV, Zofran ODT 4 mg SL, Lomotil 2 po, KCL 40 meq po Last Recorded V/S: Last Vital Signs Temp 36.7 C 08/08/16 00:12 Pulse 88 08/08/16 00:12 Resp 18 08/08/16 00:12 BP 164/92 H 08/08/16 00:12 Pulse Ox 98 08/08/16 00:12 Orthostatic Blood Pressure [ 144/99 Standing] Orthostatic Blood Pressure [ 131/84 Sitting] Orthostatic Blood Pressure [ 129/84 Supine] - Orders/Labs/Meds Orders: Active Orders 24 hr Category Date Time Status Orthostatic Vital Signs [RC] ASDIRECTED Care 08/08/16 01:01 Active Lactated Ringers [Ringers, Lactated] 1,000 ml Med 08/08/16 01:02 Active IV BOLUS Potassium Chloride [Klor-Con 10] Med 08/08/16 01:47 Once 40 meq PO ONETIME ONE Medication Orders Lactated Ringer's (Ringers, Lactated) 1,000 mls @ 1,000 mls/hr IV BOLUS ONE Stop: 08/08/16 02:01 Labs: Laboratory Tests 08/08/16 Range/Units 01:23 Sodium 132 L (135-145) mmol/L Potassium 3.4 L (3.5-5.3) mmol/L Chloride 97 L (100-110) mmol/L Carbon Dioxide 26 (23-29) mmol/L BUN 14 (5-20) mg/dL Creatinine 0.8 (0.6-1.3) mg/dL Est Cr Clr Drug Dosing TNP Estimated GFR (MDRD) > 60 (>60) BUN/Creatinine Ratio 17.5 (9-20) Glucose 318 H (80-116) mg/dL Calcium 8.9 (8.6-10.2) mg/dL Meds: Medications Generic Name Dose Route Start Last Admin Trade Name Freq PRN Reason Stop Dose Admin Lactated Ringer's 1,000 mls @ 1,000 mls/hr 08/08/16 01:02 Ringers, Lactated IV 08/08/16 02:01 BOLUS ONE Discontinued Medications Generic Name Dose Route Start Last Admin Trade Name Freq PRN Reason Stop Dose Admin Diphenoxylate HCl/Atropine 2 tab 08/08/16 01:03 Lomotil 0.025-2.5 Mg PO 08/08/16 01:04 ONETIME ONE Ondansetron HCl 4 mg 08/08/16 00:54 08/08/16 00:59 Zofran Odt PO 08/08/16 00:55 4 mg ONETIME ONE Administration Departure - Departure Time of Disposition: 02:20 Disposition: Home, Self-Care 01 Condition: Fair Clinical Impression: Orthostatic hypotension, Viral gastroenteritis, Hypokalemia Hyperglycemia due to type 2 diabetes mellitus Qualifiers: Diabetes mellitus mcc insulin use: without mcc use Qualified Code(s ): E11.65 - Type 2 diabetes mellitus with hyperglycemia - Discharge Information Forms: ED Department Discharge - My Orders Last 24 Hours: My Active Orders 08/08/16 01:01 Orthostatic Vital Signs [RC] ASDIRECTED 08/08/16 01:02 Lactated Ringers [Ringers, Lactated] 1,000 ml IV BOLUS 08/08/16 01:47 Potassium Chloride [Klor-Con 10] 40 meq PO ONETIME ONE - Assessment/Plan Last 24 Hours: My Active Orders 08/08/16 01:01 Orthostatic Vital Signs [RC] ASDIRECTED 08/08/16 01:02 Lactated Ringers [Ringers, Lactated] 1,000 ml IV BOLUS 08/08/16 01:47 Potassium Chloride [Klor-Con 10] 40 meq PO ONETIME ONE
[2016-08-08] MEDS ORDERED: Potassium Chloride 10 MEQ Tab.ER PO ONE (01:47)
[2016-08-08 02:24] VITALS: BP 147/99
== END 2016-08-08 02:32 | disposition home or self-care (01) ==
LOC: FB.ED 00:10
DX: A08.4 Viral intestinal infection, unspecified (principal); I95.1 Orthostatic hypotension; E11.65 Type 2 diabetes mellitus with hyperglycemia; E87.6 Hypokalemia; Z79.82 Long term (current) use of aspirin; Z79.899 Other long term (current) drug therapy; Z88.8 Allergy status to other drugs, medicaments and biological substances
CPT/HCPCS: 36415; 80048; 96360; 99284; A9270; J7120

== ENCOUNTER 2016-09-24 22:51 | Emergency (ER) | payer MEDICAID ==
[2016-09-24] MEDS ORDERED: Ondansetron 4 MG Tab.DIS PO ONE (23:20)
--- NOTE | 2016-09-24 23:47 | EDM.PDOC ---
ED HPI GENERAL MEDICAL PROBLEM - General Chief Complaint: Gastrointestinal Problem Stated Complaint: THROWING UP Time Seen by Provider: 09/24/16 23:35 Source of Information: Reports: Patient History Limitations: Reports: No Limitations - History of Present Illness INITIAL COMMENTS - FREE TEXT/NARRATIVE: 41 yo male presents after one emesis last night and one more tonight. No fever or diarrhea. Is currently not nauseated. No postural dizziness. His has both vomiting and diarrhea currently. 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: Other (see below) (none) - Related Data Allergies Allergy/AdvReac Type Severity Reaction Status Date / Time linezolid [From Zyvox] Allergy Severe Rash Verified 09/24/16 23:02 Home Meds: Home Meds Albuterol [Proventil Neb Soln] 0.63 mg NEB Q6H PRN 10/30/15 [History] Past Medical History Respiratory History: Reports: Asthma, Bronchitis, Recurrent, Pneumonia, Recurrent, Pneumothorax Other Respiratory History: collapsed lung Musculoskeletal History: Reports: Arthritis, Other (See Below) Other Musculoskeletal History: arthritis L foot Neurological History: Reports: Seizure Other Neuro History: last one at age 2 Psychiatric History: Reports: Anxiety, Learning Disability Endocrine/Metabolic History: Reports: Diabetes, Type II Other Endocrine/Metabolic History: currently not taking his metformin because it makes him drowsy - Infectious Disease History Infectious Disease History: Reports: Chicken Pox, MRSA, Other (See Below) Other Infectious Disease History: MRSA from lung infection - Past Surgical History Respiratory Surgical History: Reports: Other (See Below) Other Respiratory Surgeries/Procedures: chest tube for collapsed lung 2012 after pneumonia. Social & Family History - Family History Family Medical History: Noncontributory - Tobacco Use Smoking Status *Q: Never Smoker Second Hand Smoke Exposure: No - Caffeine Use Caffeine Use: Reports: Soda - Recreational Drug Use Recreational Drug Use: No ED ROS GENERAL - Review of Systems Review Of Systems: See Below Constitutional: Reports: No Symptoms HEENT: Reports: No Symptoms Respiratory: Reports: No Symptoms Cardiovascular: Reports: No Symptoms GI/Abdominal: Reports: Nausea, Vomiting Musculoskeletal: Reports: No Symptoms Skin: Reports: No Symptoms Neurological: Reports: No Symptoms ED EXAM, GI/ABD - Physical Exam Exam: See Below Exam Limited By: No Limitations General Appearance: Alert, WD/WN, No Apparent Distress Eyes: Bilateral: Normal Appearance Ears: Normal External Exam, Normal Canal, Hearing Grossly Normal Nose: Normal Inspection, Normal Mucosa, No Blood Throat/Mouth: Normal Inspection, Normal Lips, Normal Teeth, Normal Oropharynx, Normal Voice, No Airway Compromise Head: Atraumatic, Normocephalic Neck: Normal Inspection, Supple Respiratory/Chest: No Respiratory Distress, Lungs Clear, Normal Breath Sounds, No Accessory Muscle Use Cardiovascular: Regular Rate, Rhythm, No Edema GI/Abdominal Exam: Normal Bowel Sounds, Soft, Non-Tender, No Distention, Other ( Obese) Back Exam: Normal Inspection. No: CVA Tenderness (R), CVA Tenderness (L) Extremities: Normal Inspection, Normal Range of Motion, Non-Tender, No Pedal Edema Neurological: Alert, Oriented, CN II-XII Intact, Normal Cognition, No Motor/ Sensory Deficits Psychiatric: Normal Affect, Normal Mood Skin Exam: Warm, Dry, Intact, Normal Color, No Rash Lymphatic: No Adenopathy Course - Vital Signs Text/Narrative:: Orthostats negative, Zofran ODT 4 mg SL Last Recorded V/S: Last Vital Signs Temp 36.1 C 09/24/16 22:52 Pulse 89 09/24/16 22:52 Resp 15 09/24/16 22:52 BP 151/87 H 09/24/16 22:52 Pulse Ox 96 09/24/16 22:52 Orthostatic Blood Pressure [ 142/86 Standing] Orthostatic Blood Pressure [ 140/84 Sitting] Orthostatic Blood Pressure [ 146/84 Supine] - Orders/Labs/Meds Orders: Active Orders 24 hr Category Date Time Status Orthostatic Vital Signs [RC] ASDIRECTED Care 09/24/16 23:20 Active Meds: Medications Discontinued Medications Generic Name Dose Route Start Last Admin Trade Name Mayco PRN Reason Stop Dose Admin Ondansetron HCl 4 mg 09/24/16 23:20 09/24/16 23:30 Zofran Odt PO 09/24/16 23:21 4 mg ONETIME ONE Administration Departure - Departure Time of Disposition: 23:46 Disposition: Home, Self-Care 01 Condition: Good Clinical Impression: Nausea and vomiting Qualifiers: Vomiting type: unspecified Vomiting Intractability: non-intractable Qualified Code(s): R11.2 - Nausea with vomiting, unspecified - Discharge Information Forms: ED Department Discharge - My Orders Last 24 Hours: My Active Orders 09/24/16 23:20 Orthostatic Vital Signs [RC] ASDIRECTED - Assessment/Plan Last 24 Hours: My Active Orders 09/24/16 23:20 Orthostatic Vital Signs [RC] ASDIRECTED
[2016-09-25 00:49] VITALS: BP 145/78
== END 2016-09-25 00:23 | disposition home or self-care (01) ==
LOC: FB.ED 22:51
DX: R11.2 Nausea with vomiting, unspecified (principal); M19.90 Unspecified osteoarthritis, unspecified site; J45.909 Unspecified asthma, uncomplicated; E11.9 Type 2 diabetes mellitus without complications; Z88.1 Allergy status to other antibiotic agents; Z87.01 Personal history of pneumonia (recurrent); Z86.14 Personal history of Methicillin resistant Staphylococcus aureus infection
CPT/HCPCS: 99284; A9270

== ENCOUNTER 2016-12-13 12:09 | Emergency (ER) | payer MEDICAID ==
[2016-12-13] MEDS ORDERED: Insulin Regular, Human 100 Units/ML 3 ML Vial SUBCUT STA (12:58)
--- NOTE | 2016-12-13 13:47 | EDM.PDOC ---
ED HPI GENERAL MEDICAL PROBLEM - General Chief Complaint: General Stated Complaint: DEHYDRATED Time Seen by Provider: 12/13/16 12:14 Source of Information: Reports: Patient, Family History Limitations: Reports: No Limitations (poor historian) - History of Present Illness INITIAL COMMENTS - FREE TEXT/NARRATIVE: 41 y.o.w.m. with H/O NIDDM, not compliant with meds. came to the ed with his SO due to prod cough and frequent urinations. No N/V/D or any other acute medical issues. BP 125/67 Temp 36.6 pulse 101 RR 18 Pulse ox 98 on RA Onset Date: 12/10/16 Onset Time: 06:00 Duration: Day(s):, Intermittent Location: Reports: Generalized Quality: Reports: Other (coughing, frequent urination, loose stool. ) Improves with: Reports: Rest Worsens with: Reports: Movement Associated Symptoms: Reports: No Other Symptoms, Other (H/O DM) CHEST Pain Score (Numeric/FACES): 7 - Related Data Allergies Allergy/AdvReac Type Severity Reaction Status Date / Time linezolid [From Zyvox] Allergy Severe Rash Verified 12/13/16 12:20 Home Meds: Home Meds Albuterol [Proventil Neb Soln] 0.63 mg NEB Q6H PRN 10/30/15 [History] Sulfamethoxazole/Trimethoprim [Bactrim Ds Tablet] 1 each PO BID #20 tablet 12/13 [Rx] metFORMIN [Glucophage XR] 500 mg PO WITHDINNER #7 tab.er 12/13/16 [Rx] Past Medical History HEENT History: Reports: Allergic Rhinitis Respiratory History: Reports: Asthma, Bronchitis, Recurrent, Pneumonia, Recurrent, Pneumothorax Other Respiratory History: collapsed lung Musculoskeletal History: Reports: Arthritis, Other (See Below) Other Musculoskeletal History: arthritis L foot Neurological History: Reports: Seizure Other Neuro History: last one at age 2 Psychiatric History: Reports: Anxiety, Learning Disability Endocrine/Metabolic History: Reports: Diabetes, Type II Other Endocrine/Metabolic History: currently not taking his metformin because it makes him drowsy - Infectious Disease History Infectious Disease History: Reports: Chicken Pox, MRSA, Other (See Below) Other Infectious Disease History: MRSA from lung infection - Past Surgical History Respiratory Surgical History: Reports: Other (See Below) Other Respiratory Surgeries/Procedures: chest tube for collapsed lung 2012 after pneumonia. Social & Family History - Family History Family Medical History: Noncontributory - Tobacco Use Smoking Status *Q: Never Smoker Second Hand Smoke Exposure: No - Caffeine Use Caffeine Use: Reports: None - Recreational Drug Use Recreational Drug Use: No ED ROS GENERAL - Review of Systems Review Of Systems: See Below Constitutional: Reports: No Symptoms HEENT: Reports: No Symptoms Respiratory: Reports: Cough Cardiovascular: Reports: No Symptoms Endocrine: Reports: No Symptoms GI/Abdominal: Reports: No Symptoms : Reports: Urgency Musculoskeletal: Reports: No Symptoms Skin: Reports: No Symptoms Neurological: Reports: No Symptoms Psychiatric: Reports: No Symptoms Hematologic/Lymphatic: Reports: No Symptoms Immunologic: Reports: No Symptoms ED EXAM, GENERAL - Physical Exam Exam: See Below Exam Limited By: Other General Appearance: Alert, WD/WN, No Apparent Distress, Other (occ prod cough) Eye Exam: Bilateral Eye: Normal Inspection Ears: Normal External Exam Ear Exam: Bilateral Ear: Auricle Normal Nose: Normal Inspection, Normal Mucosa Throat/Mouth: Normal Inspection Head: Atraumatic, Normocephalic Neck: Normal Inspection, Supple, Non-Tender Respiratory/Chest: No Respiratory Distress, No Accessory Muscle Use, Rhonchi Cardiovascular: Normal Peripheral Pulses, Regular Rate, Rhythm, No Edema, No Gallop, No JVD, No Murmur, No Rub Peripheral Pulses: 1+: Radial (L), Radial (R) GI/Abdominal: Normal Bowel Sounds, Soft, Non-Tender, No Organomegaly, No Abnormal Bruit, No Mass, Pelvis Stable (Male) Exam: Deferred Rectal (Males) Exam: Deferred Back Exam: Normal Inspection, Full Range of Motion Extremities: Normal Inspection, Normal Range of Motion, Non-Tender, No Pedal Edema, Normal Capillary Refill Neurological: Alert, Oriented, CN II-XII Intact, Normal Gait Psychiatric: Normal Affect, Normal Mood Skin Exam: Warm, Dry, Intact, Normal Color, No Rash Lymphatic: No Adenopathy Course - Vital Signs Text/Narrative:: 41 y.o.w.m. with H/O NIDDM, not compliant with meds. came to the ed with his SO due to prod cough and frequent urinations. No N/V/D or any other acute medical issues. BP 125/67 Temp 36.6 pulse 101 RR 18 Pulse ox 98 on RA. As per SO, pt does not take his DM meds PE: WNWD WM NAD with occ prod cough. Frequent urinations Imaging: CXR NAD Labs: WBC WNL, Na 129 K 4.2 C. 1.0 BUN 15 Glc 532 HA1C 16 Urine glucose >1000 Impression: NADDM with hyperglycemia, Noncompliant with meds, acute bronchitis. Tx: Reg Insulin, Bactrim Reexam: BS on D/C 321 Plan: D/C with instructions Last Recorded V/S: Last Vital Signs Temp 36.3 C 12/13/16 13:40 Pulse 68 12/13/16 13:40 Resp 16 12/13/16 13:40 BP 134/88 12/13/16 13:40 Pulse Ox 98 12/13/16 13:40 - Orders/Labs/Meds Orders: Active Orders 24 hr Category Date Time Status Accu Check [Blood Glucose Check, Bedside] [RC] ONETIME Care 12/13/16 13:40 Active Labs: Laboratory Tests 12/13/16 12/13/16 12/13/16 Range/Units 12:37 12:44 12:44 WBC 8.4 (4.5-12.0) X10-3/uL RBC 5.61 (4.30-5.75) x10(6)uL Hgb 16.2 H (11.5-15.5) g/dL Hct 46.8 (30.0-51.3) % MCV 83.3 (80-96) fL MCH 28.8 (27.7-33.6) pg MCHC 34.6 (32.2-35.4) g/dL RDW 11.5 (11.5-15.5) % Plt Count 226 (125-369) X10(3)uL MPV 8.7 (7.4-10.4) fL Neut % (Auto) 68.7 (46-82) % Lymph % (Auto) 22.3 (13-37) % [place] % (Auto) 6.5 (4-12) % Eos % (Auto) 2 (1.0-5.0) % Baso % (Auto) 1 (0-2) % Neut # (Auto) 5.7 (1.6-8.3) # Lymph # (Auto) 1.9 (0.6-5.0) # [place] # (Auto) 0.5 (0.0-1.3) # Eos # (Auto) 0.2 (0.0-0.8) # Baso # (Auto) 0.1 (0.0-0.2) # Sodium 129 L (135-145) mmol/L Potassium 4.2 (3.5-5.3) mmol/L Chloride 92 L D (100-110) mmol/L Carbon Dioxide 25 (23-29) mmol/L BUN 15 (5-20) mg/dL Creatinine 1.0 (0.6-1.3) mg/dL Est Cr Clr Drug Dosing 97.21 mL/min Estimated GFR (MDRD) > 60 (>60) BUN/Creatinine Ratio 15.0 (9-20) Glucose 532 H* D (80-116) mg/dL Hemoglobin A1c (4.0-6.0) % Calcium 8.8 (8.6-10.2) mg/dL Urine Color Yellow (YELLOW) Urine Appearance Clear (CLEAR) Urine pH 5.0 (5.0-6.5) Ur Specific [place] 1.015 (1.010-1.025) Urine Protein Negative (NEGATIVE) mg/dL Urine Glucose (UA) >1000 H (NEGATIVE) mg/dL Urine Ketones Negative (NEGATIVE) mg/dL Urine Occult Blood Negative (NEGATIVE) Urine Nitrite Negative (NEGATIVE) Urine Bilirubin Negative (NEGATIVE) Urine Urobilinogen Normal (NEGATIVE) mg/dL Ur Leukocyte Esterase Negative (NEGATIVE) Ur Squamous Epith Cells Occasional (NS,R,O) Urine Bacteria Occasional H (NS) 12/13/16 Range/Units 12:44 WBC (4.5-12.0) X10-3/uL RBC (4.30-5.75) x10(6)uL Hgb (11.5-15.5) g/dL Hct (30.0-51.3) % MCV (80-96) fL MCH (27.7-33.6) pg MCHC (32.2-35.4) g/dL RDW (11.5-15.5) % Plt Count (125-369) X10(3)uL MPV (7.4-10.4) fL Neut % (Auto) (46-82) % Lymph % (Auto) (13-37) % [place] % (Auto) (4-12) % Eos % (Auto) (1.0-5.0) % Baso % (Auto) (0-2) % Neut # (Auto) (1.6-8.3) # Lymph # (Auto) (0.6-5.0) # [place] # (Auto) (0.0-1.3) # Eos # (Auto) (0.0-0.8) # Baso # (Auto) (0.0-0.2) # Sodium (135-145) mmol/L Potassium (3.5-5.3) mmol/L Chloride (100-110) mmol/L Carbon Dioxide (23-29) mmol/L BUN (5-20) mg/dL Creatinine (0.6-1.3) mg/dL Est Cr Clr Drug Dosing mL/min Estimated GFR (MDRD) (>60) BUN/Creatinine Ratio (9-20) Glucose (80-116) mg/dL Hemoglobin A1c 16.0 H (4.0-6.0) % Calcium (8.6-10.2) mg/dL Urine Color (YELLOW) Urine Appearance (CLEAR) Urine pH (5.0-6.5) Ur Specific [place] (1.010-1.025) Urine Protein (NEGATIVE) mg/dL Urine Glucose (UA) (NEGATIVE) mg/dL Urine Ketones (NEGATIVE) mg/dL Urine Occult Blood (NEGATIVE) Urine Nitrite (NEGATIVE) Urine Bilirubin (NEGATIVE) Urine Urobilinogen (NEGATIVE) mg/dL Ur Leukocyte Esterase (NEGATIVE) Ur Squamous Epith Cells (NS,R,O) Urine Bacteria (NS) Meds: Medications Discontinued Medications Generic Name Dose Route Start Last Admin Trade Name Freq PRN Reason Stop Dose Admin Insulin Human Regular 7 unit 12/13/16 12:58 12/13/16 13:14 Humulin R SUBCUT 12/13/16 12:59 7 unit BIDAC STA Administration Protocol Departure - Departure Time of Disposition: 13:41 Disposition: Home, Self-Care 01 Condition: Good Clinical Impression: Poor compliance with medication Acute bronchitis Qualifiers: Bronchitis organism: other organism Qualified Code(s): J20.8 - Acute bronchitis due to other specified organisms Diabetes mellitus with hyperglycemia Qualifiers: Diabetes mellitus type: type 2 Diabetes mellitus nursing home insulin use: with nursing home use Qualified Code(s): E11.65 - Type 2 diabetes mellitus with hyperglycemia - Discharge Information Prescriptions: metFORMIN [Glucophage XR] 500 mg PO WITHDINNER #7 tab.er Sulfamethoxazole/Trimethoprim [Bactrim Ds Tablet] 1 each PO BID #20 tablet Referrals: Aysha Banegas PA-C [Primary Care Provider] - Forms: ED Department Discharge, ED Return to Work/School Form Additional Instructions: Please take Bactrim and metformin as recommended, please check your blood sugar dailly, please follow up with your doctor in 2-3 days please come back if your symptoms get worse acutely. - My Orders Last 24 Hours: My Active Orders 12/13/16 13:40 Accu Check [Blood Glucose Check, Bedside] [RC] ONETIME - Assessment/Plan Last 24 Hours: My Active Orders 12/13/16 13:40 Accu Check [Blood Glucose Check, Bedside] [RC] ONETIME
[2016-12-13 14:44] VITALS: BP 134/88
--- NOTE | 2016-12-13 15:34 | CR ---
INDICATION: Short of breath. CHEST: PA and lateral views of the chest 12/13/2016 were compared with 2016 and 04/29/2016, revealing increased flattening of diaphragm leaves with AP diameter prominence and hyperaeration, all compatible with progressive obstructive airway disease and/or exacerbation of obstructive airway disease. Heavy markings are noted in the mid to lower lung sands, similar to the previous examination and likely representing fibrosis, rather than definite areas of pneumonia. No consolidating pneumonia or effusion was seen. However, it is difficult to entirely exclude minimal patchy bronchopneumonia superimposed on these areas of heavy markings. A mild dextroconcave scoliosis is noted at the lower thoracic spine. The heart appeared normal in size and shape. IMPRESSION: 1. Progression of and/or exacerbation of obstructive airway disease - possible COPD. 2. Minimal scoliosis. 3. Slightly heavy markings again noted, likely fibrotic in nature. MTDD
== END 2016-12-13 14:00 | disposition home or self-care (01) ==
LOC: FB.ED 12:09
DX: E11.65 Type 2 diabetes mellitus with hyperglycemia (principal); J20.8 Acute bronchitis due to other specified organisms; Z88.8 Allergy status to other drugs, medicaments and biological substances
CPT/HCPCS: 36415; 71020; 80048; 81001; 82962; 83036; 85025; 96372; 99283; J1815

== ENCOUNTER 2017-04-30 04:02 | Emergency (ER) | payer BC, MEDICAID ==
[2017-04-30] MEDS ORDERED: Sodium Chloride 0.9% 1,000 ML IV ONE ×2 (04:43→06:04)
[2017-04-30] MEDS ORDERED: Sodium Chloride 0.9% 10 ML Syringe FLUSH PRN (04:43)
--- NOTE | 2017-04-30 05:02 | EDM.PDOC ---
ED HPI GENERAL MEDICAL PROBLEM - General Chief Complaint: Gastrointestinal Problem Stated Complaint: VOMITING Time Seen by Provider: 04/30/17 04:15 Source of Information: Reports: Patient, Old Records History Limitations: Reports: No Limitations - History of Present Illness INITIAL COMMENTS - FREE TEXT/NARRATIVE: Helen comes to [facility] ED with an 18 hr hx of nausea and vomiting since eating [place] food at a buffet in [place] yesterday. Sxs began within an hour of eating. He has vomited about 8 times, without BRB or julianne abdominal pain. He is a Type II DM off his oral meds, last non FBS checked last month. head Pain Score (Numeric/FACES): 3 - Related Data Allergies Allergy/AdvReac Type Severity Reaction Status Date / Time linezolid [From Zyvox] Allergy Severe Rash Verified 04/30/17 04:24 Home Meds: Home Meds Albuterol [Proventil Neb Soln] 0.63 mg NEB Q6H PRN 10/30/15 [History] Past Medical History HEENT History: Reports: Allergic Rhinitis Respiratory History: Reports: Asthma, Bronchitis, Recurrent, Pneumonia, Recurrent, Pneumothorax Other Respiratory History: collapsed lung Musculoskeletal History: Reports: Arthritis, Other (See Below) Other Musculoskeletal History: arthritis L foot Neurological History: Reports: Seizure Other Neuro History: last one at age 2 Psychiatric History: Reports: Anxiety, Learning Disability Endocrine/Metabolic History: Reports: Diabetes, Type II Other Endocrine/Metabolic History: currently not taking his metformin because it makes him drowsy - Infectious Disease History Infectious Disease History: Reports: MRSA Other Infectious Disease History: MRSA from lung infection - Past Surgical History Respiratory Surgical History: Reports: Other (See Below) Other Respiratory Surgeries/Procedures: chest tube for collapsed lung 2012 after pneumonia. Social & Family History - Family History Family Medical History: Noncontributory - Tobacco Use Smoking Status *Q: Never Smoker Second Hand Smoke Exposure: No - Caffeine Use Caffeine Use: Reports: Soda - Recreational Drug Use Recreational Drug Use: No ED ROS GENERAL - Review of Systems Review Of Systems: See Below Constitutional: Reports: Malaise, Decreased Appetite HEENT: Reports: No Symptoms Respiratory: Reports: No Symptoms Cardiovascular: Reports: No Symptoms Endocrine: Reports: No Symptoms GI/Abdominal: Reports: Decreased Appetite, Nausea, Vomiting : Reports: No Symptoms Musculoskeletal: Reports: No Symptoms Skin: Reports: No Symptoms Neurological: Reports: No Symptoms Psychiatric: Reports: No Symptoms Hematologic/Lymphatic: Reports: No Symptoms Immunologic: Reports: No Symptoms ED EXAM, GI/ABD - Physical Exam Exam: See Below Exam Limited By: No Limitations General Appearance: Alert, WD/WN, No Apparent Distress Eyes: Bilateral: Normal Appearance, EOMI Ears: Normal External Exam Nose: Normal Inspection Throat/Mouth: Normal Inspection, Normal Lips, Normal Gums, Normal Oropharynx, Normal Voice Head: Normocephalic Neck: Normal Inspection, Supple, Non-Tender Respiratory/Chest: Lungs Clear, Normal Breath Sounds Cardiovascular: Regular Rate, Rhythm, No Murmur GI/Abdominal Exam: Normal Bowel Sounds, Soft, Non-Tender, No Organomegaly, No Distention, No Mass Back Exam: Normal Inspection Extremities: Normal Inspection Neurological: Alert, Oriented, CN II-XII Intact, Normal Cognition, Normal Gait, No Motor/Sensory Deficits Psychiatric: Normal Affect, Normal Mood Skin Exam: Warm, Dry, Intact, Normal Color Lymphatic: No Adenopathy Course - Vital Signs Text/Narrative:: Following assessment for food poisoning, Helen was found to be hyperglycemic with non FBS 552 mg%. He was administered NS 3 L over the next 4 hours, Reg Insulin 10 U SC, subsequent labs noted FBS 326 mg%; Hgb 15.7, WBC 7200, plts 251 ,000; Hgba1C 10.3%. Last Recorded V/S: Last Vital Signs Temp 36.5 C 04/30/17 04:10 Pulse 94 04/30/17 04:10 Resp 17 04/30/17 04:10 BP 129/90 04/30/17 04:10 Pulse Ox 98 04/30/17 04:10 - Orders/Labs/Meds Orders: Active Orders 24 hr Category Date Time Status Accu Check [Blood Glucose Check, Bedside] [RC] ONETIME Care 04/30/17 06:25 Active Sodium Chloride 0.9% [Normal Saline] 1,000 ml Med 04/30/17 07:30 Active IV ASDIRECTED Sodium Chloride 0.9% [Saline Flush] Med 04/30/17 04:43 Active 10 ml FLUSH ASDIRECTED PRN Peripheral IV Insertion Adult [OM.PC] Routine Oth 04/30/17 04:43 Ordered Medication Orders Sodium Chloride (Normal Saline) 1,000 mls @ 500 mls/hr IV ASDIRECTED JOSE Last Admin: 04/30/17 07:19 Dose: 500 mls/hr Sodium Chloride (Saline Flush) 10 ml FLUSH ASDIRECTED PRN PRN Reason: Keep Vein Open Last Admin: 04/30/17 04:58 Dose: 10 ml Labs: Laboratory Tests 04/30/17 04/30/17 04/30/17 Range/Units 04:55 04:55 04:55 WBC 7.2 (4.5-12.0) X10-3/uL RBC 5.72 (4.30-5.75) x10(6)uL Hgb 15.7 H (11.5-15.5) g/dL Hct 47.7 (30.0-51.3) % MCV 83.4 (80-96) fL MCH 27.5 L (27.7-33.6) pg MCHC 32.9 (32.2-35.4) g/dL RDW 11.9 (11.5-15.5) % Plt Count 251 (125-369) X10(3)uL MPV 8.4 (7.4-10.4) fL Neut % (Auto) 59.1 (46-82) % Lymph % (Auto) 30.5 (13-37) % [place] % (Auto) 6.9 (4-12) % Eos % (Auto) 3 (1.0-5.0) % Baso % (Auto) 1 (0-2) % Neut # (Auto) 4.2 (1.6-8.3) # Lymph # (Auto) 2.2 (0.6-5.0) # [place] # (Auto) 0.5 (0.0-1.3) # Eos # (Auto) 0.2 (0.0-0.8) # Baso # (Auto) 0.1 (0.0-0.2) # Sodium 134 L (135-145) mmol/L Potassium 3.9 (3.5-5.3) mmol/L Chloride 97 L (100-110) mmol/L Carbon Dioxide 25 (21-32) mmol/L BUN 16 (7-18) mg/dL Creatinine 1.1 (0.70-1.30) mg/dL Est Cr Clr Drug Dosing 87.48 mL/min Estimated GFR (MDRD) > 60 (>60) BUN/Creatinine Ratio 14.5 (9-20) Glucose 552 H* D (80-116) mg/dL POC Glucose (80-116) mg/dL Hemoglobin A1c 10.3 H (4.5-6.2) % Calcium 8.7 (8.6-10.2) mg/dL Urine Color (YELLOW) Urine Appearance (CLEAR) Urine pH (5.0-6.5) Ur Specific [place] (1.010-1.025) Urine Protein (NEGATIVE) mg/dL Urine Glucose (UA) (NEGATIVE) mg/dL Urine Ketones (NEGATIVE) mg/dL Urine Occult Blood (NEGATIVE) Urine Nitrite (NEGATIVE) Urine Bilirubin (NEGATIVE) Urine Urobilinogen (NEGATIVE) mg/dL Ur Leukocyte Esterase (NEGATIVE) Urine RBC (0) Urine WBC (0) Ur Squamous Epith Cells (NS,R,O) Urine Bacteria (NS) 04/30/17 04/30/17 04/30/17 Range/Units 05:20 07:21 08:05 WBC (4.5-12.0) X10-3/uL RBC (4.30-5.75) x10(6)uL Hgb (11.5-15.5) g/dL Hct (30.0-51.3) % MCV (80-96) fL MCH (27.7-33.6) pg MCHC (32.2-35.4) g/dL RDW (11.5-15.5) % Plt Count (125-369) X10(3)uL MPV (7.4-10.4) fL Neut % (Auto) (46-82) % Lymph % (Auto) (13-37) % [place] % (Auto) (4-12) % Eos % (Auto) (1.0-5.0) % Baso % (Auto) (0-2) % Neut # (Auto) (1.6-8.3) # Lymph # (Auto) (0.6-5.0) # [place] # (Auto) (0.0-1.3) # Eos # (Auto) (0.0-0.8) # Baso # (Auto) (0.0-0.2) # Sodium 139 (135-145) mmol/L Potassium 3.9 (3.5-5.3) mmol/L Chloride 104 D (100-110) mmol/L Carbon Dioxide 29 (21-32) mmol/L BUN 13 (7-18) mg/dL Creatinine 0.9 (0.70-1.30) mg/dL Est Cr Clr Drug Dosing 106.92 mL/min Estimated GFR (MDRD) > 60 (>60) BUN/Creatinine Ratio 14.4 (9-20) Glucose 326 H D (80-116) mg/dL POC Glucose 332 H (80-116) mg/dL Hemoglobin A1c (4.5-6.2) % Calcium 8.0 L (8.6-10.2) mg/dL Urine Color Yellow (YELLOW) Urine Appearance Clear (CLEAR) Urine pH 5.0 (5.0-6.5) Ur Specific [place] 1.010 (1.010-1.025) Urine Protein Negative (NEGATIVE) mg/dL Urine Glucose (UA) >1000 H (NEGATIVE) mg/dL Urine Ketones Negative (NEGATIVE) mg/dL Urine Occult Blood Negative (NEGATIVE) Urine Nitrite Negative (NEGATIVE) Urine Bilirubin Negative (NEGATIVE) Urine Urobilinogen Normal (NEGATIVE) mg/dL Ur Leukocyte Esterase Negative (NEGATIVE) Urine RBC 0-5 (0) Urine WBC 0-5 (0) Ur Squamous Epith Cells Rare (NS,R,O) Urine Bacteria Few H (NS) Meds: Medications Generic Name Dose Route Start Last Admin Trade Name Freq PRN Reason Stop Dose Admin Sodium Chloride 1,000 mls @ 500 mls/hr 04/30/17 07:30 04/30/17 07:19 Normal Saline IV 500 mls/hr ASDIRECTED JOSE Administration Sodium Chloride 10 ml 04/30/17 04:43 04/30/17 04:58 Saline Flush FLUSH 10 ml ASDIRECTED PRN Administration Keep Vein Open Discontinued Medications Generic Name Dose Route Start Last Admin Trade Name Freq PRN Reason Stop Dose Admin Sodium Chloride 1,000 mls @ 999 mls/hr 04/30/17 04:43 04/30/17 05:00 Normal Saline IV 04/30/17 05:43 999 mls/hr .BOLUS ONE Administration Sodium Chloride 1,000 mls @ 999 mls/hr 04/30/17 06:15 Normal Saline IV ASDIRECTED JOSE Sodium Chloride 1,000 mls @ 999 mls/hr 04/30/17 06:04 04/30/17 06:10 Normal Saline IV 04/30/17 07:04 999 mls/hr .BOLUS ONE Administration Insulin Human Regular 10 unit 04/30/17 05:55 04/30/17 06:04 Humulin R SUBCUT 04/30/17 05:56 10 units ONETIME ONE Administration Departure - Departure Time of Disposition: 09:43 Disposition: Home, Self-Care 01 Condition: Fair Clinical Impression: Hyperglycemia due to type 2 diabetes mellitus Qualifiers: Diabetes mellitus snf insulin use: without snf use Qualified Code(s ): E11.65 - Type 2 diabetes mellitus with hyperglycemia - Discharge Information Referrals: Aysha Banegas PA-C [Primary Care Provider] - Forms: ED Department Discharge Additional Instructions: Keep your appointment with Dr Banegas at 1PM today at [facility] - Problem List & Annotations (1) Hyperglycemia due to type 2 diabetes mellitus SNOMED Code(s): 170434679967426 Code(s): E11.65 - TYPE 2 DIABETES MELLITUS WITH HYPERGLYCEMIA Status: Acute Current Visit: Yes Annotation/Comment:: Appt made to see PCP at 1:00 pm today for diabetic management. Qualifiers: Diabetes mellitus snf insulin use: without snf use Qualified Code(s): E11.65 - Type 2 diabetes mellitus with hyperglycemia - Problem List Review Problem List Initiated/Reviewed/Updated: Yes - My Orders Last 24 Hours: My Active Orders 04/30/17 04:43 Sodium Chloride 0.9% [Saline Flush] 10 ml FLUSH ASDIRECTED PRN Peripheral IV Insertion Adult [OM.PC] Routine 04/30/17 06:25 Accu Check [Blood Glucose Check, Bedside] [RC] ONETIME 04/30/17 07:30 Sodium Chloride 0.9% [Normal Saline] 1,000 ml IV ASDIRECTED - Assessment/Plan Last 24 Hours: My Active Orders 04/30/17 04:43 Sodium Chloride 0.9% [Saline Flush] 10 ml FLUSH ASDIRECTED PRN Peripheral IV Insertion Adult [OM.PC] Routine 04/30/17 06:25 Accu Check [Blood Glucose Check, Bedside] [RC] ONETIME 04/30/17 07:30 Sodium Chloride 0.9% [Normal Saline] 1,000 ml IV ASDIRECTED Plan: Follow up with PCP.
[2017-04-30] MEDS ORDERED: Insulin Regular, Human 100 Units/ML 3 ML Vial SUBCUT ONE (05:55)
[2017-04-30] MEDS ORDERED: Sodium Chloride 0.9% 1,000 ML IV SCH ×2 (06:15→07:30)
[2017-04-30 09:53] VITALS: BP 158/92
== END 2017-04-30 09:50 | disposition home or self-care (01) ==
LOC: FB.ED 04:02
DX: E11.65 Type 2 diabetes mellitus with hyperglycemia (principal); J45.909 Unspecified asthma, uncomplicated; Z88.8 Allergy status to other drugs, medicaments and biological substances
CPT/HCPCS: 36415; 80048; 81001; 82962; 83036; 85025; 96360; 96361; 96372; 99283; J1815; J7040; J7050

== ENCOUNTER 2017-07-31 12:40 | Emergency (ER) | payer MEDICAID ==
[2017-07-31] MEDS ORDERED: Sodium Chloride 0.9% 10 ML Syringe FLUSH PRN (13:17)
--- NOTE | 2017-07-31 13:23 | EDM.PDOC ---
ED HPI GENERAL MEDICAL PROBLEM - General Chief Complaint: General Stated Complaint: VOMITTING,DISORIENTATION Time Seen by Provider: 07/31/17 13:00 Source of Information: Reports: Patient, Family, Old Records History Limitations: Reports: No Limitations - History of Present Illness INITIAL COMMENTS - FREE TEXT/NARRATIVE: Helen returns to [facility] ED with a week long hx of polyuria, polydipsia, fatigue, ongoing wt loss, and more recent nausea and vomiting over the past 24 hrs. He has a known hx of Type II DM, no oral or injectable diabetic meds, a hx of noncompliance, last ED visit from April 30, 2017 reviewed. He is currently seeing an transportation project manager at [facility] over the past month. Helen is low functioning, lacks insight and judgement, and spouse is managing current sxs. Treatments HORTICULTURAL WORKER: Reports: NSAIDS, Other (see below) Other Treatments HORTICULTURAL WORKER: ANTIEMETIC - Related Data Allergies Allergy/AdvReac Type Severity Reaction Status Date / Time linezolid [From Zyvox] Allergy Severe Rash Verified 07/31/17 12:46 Home Meds: Home Meds Albuterol [Proventil Neb Soln] 0.63 mg NEB BEDTIME 10/30/15 [History] Past Medical History HEENT History: Reports: Allergic Rhinitis Respiratory History: Reports: Asthma, Bronchitis, Recurrent, Pneumonia, Recurrent, Pneumothorax Other Respiratory History: collapsed lung Musculoskeletal History: Reports: Arthritis, Other (See Below) Other Musculoskeletal History: arthritis L foot Neurological History: Reports: Seizure Other Neuro History: last one at age 2 Psychiatric History: Reports: Anxiety, Learning Disability Endocrine/Metabolic History: Reports: Diabetes, Type II Other Endocrine/Metabolic History: currently not taking his metformin because it makes him drowsy - Infectious Disease History Infectious Disease History: Reports: MRSA Other Infectious Disease History: MRSA from lung infection - Past Surgical History Respiratory Surgical History: Reports: Other (See Below) Other Respiratory Surgeries/Procedures: chest tube for collapsed lung 2012 after pneumonia. Social & Family History - Family History Family Medical History: Noncontributory - Tobacco Use Smoking Status *Q: Never Smoker - Caffeine Use Caffeine Use: Reports: Soda - Recreational Drug Use Recreational Drug Use: No ED ROS GENERAL - Review of Systems Review Of Systems: See Below Constitutional: Reports: Malaise, Weakness, Fatigue, Decreased Appetite, Weight Loss HEENT: Reports: No Symptoms Respiratory: Reports: No Symptoms Cardiovascular: Reports: No Symptoms Endocrine: Reports: Fatigue, High Glucose, Polydypsia, Polyuria GI/Abdominal: Reports: Nausea, Other : Reports: Frequency Musculoskeletal: Reports: No Symptoms Skin: Reports: No Symptoms Neurological: Reports: Confusion Psychiatric: Reports: Confusion Hematologic/Lymphatic: Reports: No Symptoms Immunologic: Reports: No Symptoms ED EXAM, GENERAL - Physical Exam Exam: See Below Exam Limited By: Other (Low functioning, lack of insight and judgement) Eye Exam: Bilateral Eye: EOMI, Normal Inspection, PERRL Ears: Normal External Exam Nose: Normal Inspection Throat/Mouth: Normal Inspection, Normal Oropharynx, Normal Voice, No Airway Compromise Head: Normocephalic Neck: Normal Inspection, Supple, Non-Tender, Full Range of Motion Respiratory/Chest: Lungs Clear, Normal Breath Sounds, Chest Non-Tender Cardiovascular: No JVD, No Murmur, Tachycardia GI/Abdominal: Normal Bowel Sounds, Soft, Non-Tender, No Organomegaly, No Distention, No Mass (Male) Exam: Deferred Rectal (Males) Exam: Deferred Back Exam: Normal Inspection Extremities: Normal Inspection Neurological: Alert, Oriented, CN II-XII Intact, Normal Gait, No Motor/Sensory Deficits, Slow to Respond Psychiatric: Flat Affect Skin Exam: Warm, Dry Lymphatic: No Adenopathy Course - Vital Signs Text/Narrative:: Following assessment at the [facility] ED, an IV was started in the RUE, and 2L of NS was administered over the next 2 hours. Labs noted: CBC baseline, Na 136, K 4.3 , non FBS 244, HgbA1c 9.9%; UA noted 2+ ketones, Glu 1000; a UC was set up. Reports from [facility] dated 05/31/16 outlined solitary appt with Dr Edilberto Collazo [employer], confirming senior living hx of noncompliance. Spouse has been talking with Dr Collazo' nurse and has scheduled an appt for August 20, 2017 for follow up. Helen was discharged clinically improved, unwilling to resume oral or inj meds. Last Recorded V/S: Last Vital Signs Temp 36.8 C 07/31/17 12:47 Pulse 84 07/31/17 14:18 Resp 15 07/31/17 14:18 BP 149/83 H 07/31/17 14:18 Pulse Ox 99 07/31/17 14:18 - Orders/Labs/Meds Orders: Active Orders 24 hr Category Date Time Status CULTURE URINE [RM] Stat Lab 07/31/17 13:08 Ordered Sodium Chloride 0.9% [Normal Saline] 2,000 ml Med 07/31/17 13:30 Active IV ASDIRECTED Sodium Chloride 0.9% [Saline Flush] Med 07/31/17 13:17 Active 10 ml FLUSH ASDIRECTED PRN Peripheral IV Insertion Adult [OM.PC] Routine Oth 07/31/17 13:17 Ordered Medication Orders Sodium Chloride (Normal Saline) 2,000 mls @ 999 mls/hr IV ASDIRECTED JOSE Last Admin: 07/31/17 14:28 Dose: 999 mls/hr Infusion: 07/31/17 14:28 Dose: 999 mls/hr Admin: 07/31/17 13:24 Dose: 999 mls/hr Sodium Chloride (Saline Flush) 10 ml FLUSH ASDIRECTED PRN PRN Reason: Keep Vein Open Last Admin: 07/31/17 13:24 Dose: 10 ml Labs: Laboratory Tests 07/31/17 07/31/17 07/31/17 Range/Units 13:08 13:20 13:20 WBC 4.4 L (4.5-12.0) X10-3/uL RBC 5.66 (4.30-5.75) x10(6)uL Hgb 16.4 H (11.5-15.5) g/dL Hct 48.0 (30.0-51.3) % MCV 84.8 (80-96) fL MCH 29.0 (27.7-33.6) pg MCHC 34.2 (32.2-35.4) g/dL RDW 12.0 (11.5-15.5) % Plt Count 203 (125-369) X10(3)uL MPV 7.9 (7.4-10.4) fL Neut % (Auto) 61.6 (46-82) % Lymph % (Auto) 22.1 (13-37) % [place] % (Auto) 15.1 H (4-12) % Eos % (Auto) 1 (1.0-5.0) % Baso % (Auto) 1 (0-2) % Neut # (Auto) 2.7 (1.6-8.3) # Lymph # (Auto) 1.0 (0.6-5.0) # [place] # (Auto) 0.7 (0.0-1.3) # Eos # (Auto) 0.0 (0.0-0.8) # Baso # (Auto) 0.0 (0.0-0.2) # Sodium 136 (135-145) mmol/L Potassium 4.3 (3.5-5.3) mmol/L Chloride 97 L D (100-110) mmol/L Carbon Dioxide 30 (21-32) mmol/L BUN 11 (7-18) mg/dL Creatinine 1.1 (0.70-1.30) mg/dL Est Cr Clr Drug Dosing 87.48 mL/min Estimated GFR (MDRD) > 60 (>60) BUN/Creatinine Ratio 10.0 (9-20) Glucose 244 H D (80-116) mg/dL Hemoglobin A1c (4.5-6.2) % Calcium 9.0 (8.6-10.2) mg/dL Total Bilirubin 2.1 H (0.1-1.3) mg/dL AST 23 (5-25) IU/L ALT 32 (12-36) U/L Alkaline Phosphatase 102 (56-112) IU/L Total Protein 7.1 (6.0-8.0) g/dL Albumin 3.5 (3.5-5.2) g/dL Globulin 3.6 g/dL Albumin/Globulin Ratio 1.0 Urine Color Yellow (YELLOW) Urine Appearance Clear (CLEAR) Urine pH 5.0 (5.0-6.5) Ur Specific [place] 1.020 (1.010-1.025) Urine Protein Negative (NEGATIVE) mg/dL Urine Glucose (UA) >1000 H (NEGATIVE) mg/dL Urine Ketones 50 H (NEGATIVE) mg/dL Urine Occult Blood Moderate H (NEGATIVE) Urine Nitrite Negative (NEGATIVE) Urine Bilirubin Small H (NEGATIVE) Urine Urobilinogen 1 H (NEGATIVE) mg/dL Ur Leukocyte Esterase Negative (NEGATIVE) Urine WBC 5-10 (0) Ur Squamous Epith Cells Few H (NS,R,O) Urine Bacteria Moderate H (NS) //18 Range/Units 13:20 WBC (4.5-12.0) X10-3/uL RBC (4.30-5.75) x10(6)uL Hgb (11.5-15.5) g/dL Hct (30.0-51.3) % MCV (80-96) fL MCH (27.7-33.6) pg MCHC (32.2-35.4) g/dL RDW (11.5-15.5) % Plt Count (125-369) X10(3)uL MPV (7.4-10.4) fL Neut % (Auto) (46-82) % Lymph % (Auto) (13-37) % [place] % (Auto) (4-12) % Eos % (Auto) (1.0-5.0) % Baso % (Auto) (0-2) % Neut # (Auto) (1.6-8.3) # Lymph # (Auto) (0.6-5.0) # [place] # (Auto) (0.0-1.3) # Eos # (Auto) (0.0-0.8) # Baso # (Auto) (0.0-0.2) # Sodium (135-145) mmol/L Potassium (3.5-5.3) mmol/L Chloride (100-110) mmol/L Carbon Dioxide (21-32) mmol/L BUN (7-18) mg/dL Creatinine (0.70-1.30) mg/dL Est Cr Clr Drug Dosing mL/min Estimated GFR (MDRD) (>60) BUN/Creatinine Ratio (9-20) Glucose (80-116) mg/dL Hemoglobin A1c 9.9 H (4.5-6.2) % Calcium (8.6-10.2) mg/dL Total Bilirubin (0.1-1.3) mg/dL AST (5-25) IU/L ALT (12-36) U/L Alkaline Phosphatase (56-112) IU/L Total Protein (6.0-8.0) g/dL Albumin (3.5-5.2) g/dL Globulin g/dL Albumin/Globulin Ratio Urine Color (YELLOW) Urine Appearance (CLEAR) Urine pH (5.0-6.5) Ur Specific [place] (1.010-1.025) Urine Protein (NEGATIVE) mg/dL Urine Glucose (UA) (NEGATIVE) mg/dL Urine Ketones (NEGATIVE) mg/dL Urine Occult Blood (NEGATIVE) Urine Nitrite (NEGATIVE) Urine Bilirubin (NEGATIVE) Urine Urobilinogen (NEGATIVE) mg/dL Ur Leukocyte Esterase (NEGATIVE) Urine WBC (0) Ur Squamous Epith Cells (NS,R,O) Urine Bacteria (NS) Meds: Medications Generic Name Dose Route Start Last Admin Trade Name Freq PRN Reason Stop Dose Admin Sodium Chloride 2,000 mls @ 999 mls/hr 07/31/17 13:30 07/31/17 14:28 Normal Saline IV 999 mls/hr ASDIRECTED JOSE Administration Sodium Chloride 10 ml 07/31/17 13:17 07/31/17 13:24 Saline Flush FLUSH 10 ml ASDIRECTED PRN Administration Keep Vein Open Departure - Departure Time of Disposition: 15:00 Disposition: Home, Self-Care 01 Condition: Fair Clinical Impression: Diabetes mellitus type 2, uncontrolled Qualifiers: Diabetes mellitus senior living insulin use: without senior living use Diabetes mellitus complication status: with hyperglycemia Qualified Code(s): E11.65 - Type 2 diabetes mellitus with hyperglycemia - Discharge Information Instructions: Diabetic Ketoacidosis Referrals: Aysha Banegas PA-C [Primary Care Provider] - Forms: ED Department Discharge Additional Instructions: FOLLOW UP WITH PRIMARY CARE PROVIDER AND KEEP APPOINTMENT WITH DR. YOLANDA COLLAZO IN ENDOCRINOLOGY IN [place] ON August. PLENTY OF FLUIDS - AVOID SUGARY BEVERAGES AND CAFFEINE. - Problem List & Annotations (1) Diabetes mellitus type 2, uncontrolled SNOMED Code(s): 66351550, 628999220 Code(s): E11.65 - TYPE 2 DIABETES MELLITUS WITH HYPERGLYCEMIA Status: Acute Current Visit: Yes Annotation/Comment:: Helen continues to resist efforts to manage Type II DM with meds both oral and injectable. His spouse made a follow up appt with Dr Collazo at [facility] for August 20. He was encouraged to perform daily diabetic surveillance, diet, and consider meds. His spouse will continue efforts to persuade him to be compliant. Qualifiers: Diabetes mellitus senior living insulin use: without senior living use Diabetes mellitus complication status: with hyperglycemia Qualified Code(s): E11.65 - Type 2 diabetes mellitus with hyperglycemia - Problem List Review Problem List Initiated/Reviewed/Updated: Yes - My Orders Last 24 Hours: My Active Orders 07/31/17 13:08 CULTURE URINE [RM] Stat 07/31/17 13:17 Sodium Chloride 0.9% [Saline Flush] 10 ml FLUSH ASDIRECTED PRN Peripheral IV Insertion Adult [OM.PC] Routine 07/31/17 13:30 Sodium Chloride 0.9% [Normal Saline] 2,000 ml IV ASDIRECTED - Assessment/Plan Last 24 Hours: My Active Orders 07/31/17 13:08 CULTURE URINE [RM] Stat 07/31/17 13:17 Sodium Chloride 0.9% [Saline Flush] 10 ml FLUSH ASDIRECTED PRN Peripheral IV Insertion Adult [OM.PC] Routine 07/31/17 13:30 Sodium Chloride 0.9% [Normal Saline] 2,000 ml IV ASDIRECTED Plan: Follow up with transportation project manager.
[2017-07-31] MEDS: Sodium Chloride 0.9% 2,000 ML IV SCH ×2 (13:24→14:28)
[2017-07-31 18:05] VITALS: BP 151/79
== END 2017-07-31 15:32 | disposition home or self-care (01) ==
LOC: FB.ED 12:40
DX: E11.65 Type 2 diabetes mellitus with hyperglycemia (principal); Z88.8 Allergy status to other drugs, medicaments and biological substances
CPT/HCPCS: 36415; 80053; 81001; 83036; 85025; 87086; 96360; 96361; 99284; J7030; J7050

== ENCOUNTER 2017-10-28 22:52 | Emergency (ER) | payer MEDICAID ==
[2017-10-28 23:04] VITALS: BP 135/75
--- NOTE | 2017-10-28 23:16 | EDM.PDOC ---
ED HPI GENERAL MEDICAL PROBLEM - General Chief Complaint: Respiratory Problem Stated Complaint: TROUBLE BREATHING Time Seen by Provider: 10/28/17 23:05 Source of Information: Reports: Patient, Old Records History Limitations: Reports: No Limitations - History of Present Illness INITIAL COMMENTS - FREE TEXT/NARRATIVE: Helen comes into [facility] ED with a 2 week hx of chest congestion. There is some cough but no wheezing, no fever, chest pain or SOB. He was seen by PCP 2 weeks ago, and reportedly chest x ray was negative. He was prescribed a Z Jcarlos and a 7 day course of Prednisone. The Prednisone was repeated last week for the same duration. He doesn't feel any better. Of interest is a PMH of Type II DM, poorly controlled. He has not followed up with Technical Sales Manager or PCP regarding managment. Tonight, his nonFBS >500mg%. mid-chest Pain Score (Numeric/FACES): 3 - Related Data Allergies Allergy/AdvReac Type Severity Reaction Status Date / Time linezolid [From Zyvox] Allergy Severe Rash Verified 07/31/17 12:46 Home Meds: Home Meds Albuterol [Proventil Neb Soln] 0.63 mg NEB BEDTIME 10/30/15 [History] Past Medical History HEENT History: Reports: Allergic Rhinitis Respiratory History: Reports: Asthma, Bronchitis, Recurrent, Pneumonia, Recurrent, Pneumothorax Other Respiratory History: collapsed lung Musculoskeletal History: Reports: Arthritis, Other (See Below) Other Musculoskeletal History: arthritis L foot Neurological History: Reports: Seizure Other Neuro History: last one at age 2 Psychiatric History: Reports: Anxiety, Learning Disability Endocrine/Metabolic History: Reports: Diabetes, Type II Other Endocrine/Metabolic History: currently not taking his metformin because it makes him drowsy - Infectious Disease History Infectious Disease History: Reports: MRSA Other Infectious Disease History: MRSA from lung infection - Past Surgical History Respiratory Surgical History: Reports: Other (See Below) Other Respiratory Surgeries/Procedures: chest tube for collapsed lung 2012 after pneumonia. Social & Family History - Family History Family Medical History: Noncontributory - Caffeine Use Caffeine Use: Reports: Soda ED ROS GENERAL - Review of Systems Review Of Systems: ROS reveals no pertinent complaints other than HPI. ED EXAM, GENERAL - Physical Exam Exam: See Below Exam Limited By: No Limitations General Appearance: Alert, WD/WN, No Apparent Distress Eye Exam: Bilateral Eye: EOMI, Normal Inspection, PERRL Ears: Normal External Exam Nose: Normal Inspection Throat/Mouth: Normal Inspection, Normal Voice, No Airway Compromise Head: Normocephalic Neck: Normal Inspection, Supple Respiratory/Chest: Lungs Clear, Normal Breath Sounds, Chest Non-Tender Cardiovascular: Regular Rate, Rhythm, No Murmur Back Exam: Normal Inspection Extremities: Normal Inspection Neurological: Alert, Oriented, CN II-XII Intact, No Motor/Sensory Deficits Psychiatric: Normal Affect, Normal Mood Skin Exam: Warm, Dry, Intact, Other (poor hygiene) Lymphatic: No Adenopathy Course - Vital Signs Text/Narrative:: Following assessment at the [facility] ED, a CBC was performed and normal for age. He remains resistant to interventions for diabetic managment. Last Recorded V/S: Last Vital Signs Temp 36.3 C 10/28/17 23:00 Pulse 97 10/28/17 23:00 Resp 21 H 10/28/17 23:00 BP 135/75 10/28/17 23:00 Pulse Ox 98 10/28/17 23:00 - Orders/Labs/Meds Orders: Active Orders 24 hr Category Date Time Status GLUCOSE RANDOM [CHEM] Routine Lab 10/28/17 23:18 Received Labs: Laboratory Tests 10/28/17 10/28/17 Range/Units 23:06 23:18 WBC 6.8 (4.5-12.0) X10-3/uL RBC 4.87 (4.30-5.75) x10(6)uL Hgb 14.6 (11.5-15.5) g/dL Hct 41.7 (30.0-51.3) % MCV 85.7 (80-96) fL MCH 29.9 (27.7-33.6) pg MCHC 34.9 (32.2-35.4) g/dL RDW 12.0 (11.5-15.5) % Plt Count 242 (125-369) X10(3)uL MPV 8.3 (7.4-10.4) fL Neut % (Auto) 55.7 (46-82) % Lymph % (Auto) 32.6 (13-37) % [place] % (Auto) 9.5 (4-12) % Eos % (Auto) 1 (1.0-5.0) % Baso % (Auto) 1 (0-2) % Neut # (Auto) 3.8 (1.6-8.3) # Lymph # (Auto) 2.2 (0.6-5.0) # [place] # (Auto) 0.6 (0.0-1.3) # Eos # (Auto) 0.1 (0.0-0.8) # Baso # (Auto) 0.1 (0.0-0.2) # POC Glucose > 500 H* D (80-116) mg/dL Departure - Departure Time of Disposition: 23:43 Disposition: Home, Self-Care 01 Condition: Fair Clinical Impression: Hyperglycemia due to type 2 diabetes mellitus Qualifiers: Diabetes mellitus fpc insulin use: without fpc use Qualified Code(s ): E11.65 - Type 2 diabetes mellitus with hyperglycemia - Discharge Information *PRESCRIPTION DRUG MONITORING PROGRAM REVIEWED*: Not Applicable *COPY OF PRESCRIPTION DRUG MONITORING REPORT IN PATIENT VICENTA: Not Applicable Referrals: Aysha Banegas PA-C [Primary Care Provider] - Forms: ED Department Discharge - Problem List & Annotations (1) Diabetes mellitus type 2, uncontrolled SNOMED Code(s): 63709166, 143035527 Code(s): E11.65 - TYPE 2 DIABETES MELLITUS WITH HYPERGLYCEMIA Status: Acute Current Visit: No Annotation/Comment:: Helen continues to resist efforts to manage Type II DM with meds both oral and injectable. His spouse made a follow up appt with Dr Amos at [facility] for August 20. He was encouraged to perform daily diabetic surveillance, diet, and consider meds. His spouse will continue efforts to persuade him to be compliant. Helen's nonFBS 609 mg%. He refuses medical managment. Qualifiers: Qualified Code(s): E11.65 - Type 2 diabetes mellitus with hyperglycemia (2) Bronchitis SNOMED Code(s): 98489443 Code(s): J40 - BRONCHITIS, NOT SPECIFIED ACUTE OR CHRONIC Status: Acute Current Visit: No Annotation/Comment:: Finish out Z Jcarlos per PCP. No findings for acute or residual illness from prior treatment of bronchitis. He may stop nebs. - Problem List Review Problem List Initiated/Reviewed/Updated: Yes - My Orders Last 24 Hours: My Active Orders 10/28/17 23:18 GLUCOSE RANDOM [CHEM] Routine - Assessment/Plan Last 24 Hours: My Active Orders 10/28/17 23:18 GLUCOSE RANDOM [CHEM] Routine Plan: Follow up with PCP.
== END 2017-10-28 23:47 | disposition home or self-care (01) ==
LOC: FB.ED 22:52
DX: E11.65 Type 2 diabetes mellitus with hyperglycemia (principal); Z88.8 Allergy status to other drugs, medicaments and biological substances
CPT/HCPCS: 36415; 82947; 82962; 85025; 99283